=== PATIENT | female | born 1955 | race Caucasian/White ===

== ENCOUNTER 2021-03-16 07:14 | Outpatient (CLI) | payer OTHER, SELFPAY ==
--- NOTE | ~2021-03-16 | MM_ITS ---
EXAMINATION: MM screening alex BI w suki HISTORY: Screening mammogram TECHNIQUE: Craniocaudal and mediolateral oblique 3-D tomosynthesis images were obtained and synthetic 2-D images were generated. CAD analysis was submitted and interpreted. COMPARISON: No prior mammogram is available for comparison at this institution. BREAST PARENCHYMAL COMPOSITION: The breasts are almost entirely fatty. FINDINGS: RIGHT BREAST: There is a mass in the middle third of inner breast 6.5 cm from the nipple. LEFT BREAST: A mass is present in the far posterior third of the upper outer quadrant breast.. IMPRESSION: 1. Bilateral breast masses which may represent the patient's baseline however no comparison is curren tly available. 2. Comparison with prior mammograms is necessary. BI-RADS Category 0: Incomplete: Needs comparison with prior mammograms. Reviewed, dictated and finalized at location A. IMPRESSION: 1. Bilateral breast masses which may represent the patient's baseline however n o comparison is currently available. 2. Comparison with prior mammograms is necessary. BI-RADS Category 0: Incomplete: Needs comparison with prior mammograms.
--- NOTE | ~2021-03-16 | XR_ITS ---
XR chest 2V DATE: 03/16/2021 08:08 INDICATION: Tobacco use. Hypertension. TECHNIQUE: PA and lateral views COMPARISON: 07/15/2016 PA and lateral chest FINDINGS: Normal heart size. Aortic calcification and tortuosity. No hilar or mediastinal enlargement . No pulmonary infiltrate or consolidation, pleural effusion or pulmonary vascular congestion or pneumo thorax. Diffuse osteopenia. IMPRESSION: No active cardiopulmonary disease Reviewed, dictated and finalized at location A.
== END 2021-03-16 07:15 | disposition home or self-care (01) ==
PROVIDERS: PCP Emergency Medicine; Visit Provider Emergency Medicine
DX: Z12.31 Encounter for screening mammogram for malignant neoplasm of breast (principal); Z87.891 Personal history of nicotine dependence; R92.8 Other abnormal and inconclusive findings on diagnostic imaging of breast
CPT/HCPCS: 71046; 77063; 77067

== ENCOUNTER → 2021-04-09 08:16 | Outpatient (CLI) | payer OTHER, SELFPAY ==
[2021-04-09 19:37] LABS: SARS-CoV-2 RNA PCR Negative
== END ==
PROVIDERS: PCP Emergency Medicine; Visit Provider Emergency Medicine
DX: Z20.822 Contact with and (suspected) exposure to COVID-19 (principal); R05 Cough
CPT/HCPCS: 71046; C9803; U0003; U0005

== ENCOUNTER 2021-04-09 09:12 | Outpatient (CLI) | payer OTHER, SELFPAY ==
--- NOTE | ~2021-04-09 | XR_ITS ---
XR chest 2V DATE: 04/09/2021 09:27 INDICATION: Cough TECHNIQUE: PA and lateral views COMPARISON: 03/21 2021 2 view chest FINDINGS: There is mild cardiomegaly. There is aortic calcification, ectasia and tortuosity. No hilar or mediastinal enlargement. No pulmonary infiltrate or consolidation, pleural effusion or pulmonary vascular congestion or pneumo thorax. Diffuse osteopenia. IMPRESSION: Mild cardiomegaly Aortic atherosclerosis No active pulmonary disease Reviewed, dictated and finalized at location A.
== END 2021-04-09 09:13 | disposition home or self-care (01) ==
LOC: ANHIMG 09:15
PROVIDERS: PCP Emergency Medicine; Visit Provider Emergency Medicine
DX: R05 Cough (principal); I51.7 Cardiomegaly; I70.0 Atherosclerosis of aorta
CPT/HCPCS: 71046

== ENCOUNTER 2021-04-29 11:36 | Outpatient (CLI) | payer OTHER, SELFPAY ==
--- NOTE | ~2021-04-29 | MMUS_ITS ---
EXAMINATION: MM diagnostic mammo BI, US breast BI limited HISTORY: Follow-up bilateral breast masses TECHNIQUE: Additional 3-D tomosynthesis images of the breasts were performed and synthetic 2-D images were generated. CAD analysis was submitted and interpreted. High resolution limited bilateral breast ultrasound was performed. COMPARISON: 03/16/2021 BREAST PARENCHYMAL COMPOSITION: Breast composed of scattered areas of fibroglandular density FINDINGS: MAMMOGRAPHIC FINDINGS: There is a persistent circumscribed radiolucent mass measuring 6 mm in the lower inner quadrant of th e right breast, likely benign. In the left axilla there is a 1.3 cm circumscribed mass with fatty hil um, compatible with lymph node. ULTRASOUND: Limited right breast ultrasound: Normal heterogeneous echotexture without focal solid or cystic mass. Limited left breast/axillary ultrasound: There is a normal-appearing 1.1 cm lymph node in the left ax illa splinting to the mammographic finding. No suspicious masses to suggest malignancy. IMPRESSION: 1. Probable benign 6 mm circumscribed radiolucent nodule lower inner quadrant of the right breast, mi ddle third. No evidence for malignancy in the left breast. 2. Recommend 6 month follow-up diagnostic right mammogram BI-RADS category 3, probably benign findings. Reviewed, dictated and finalized at location A. IMPRESSION: 1. Probable benign 6 mm circumscribed radiolucent nodule lower inner quadrant o f the right breast, middle third. No evidence for malignancy in the left breast . 2. Recommend 6 month follow-up diagnostic right mammogram BI-RADS category 3, probably benign findings.
== END 2021-04-29 11:37 | disposition home or self-care (01) ==
LOC: ANHIMG 11:38
PROVIDERS: PCP Emergency Medicine; Visit Provider Emergency Medicine
DX: N63.24 Unspecified lump in the left breast, lower inner quadrant (principal)
CPT/HCPCS: 76642; 77066

== ENCOUNTER 2021-05-07 12:25 | Outpatient (CLI) | payer OTHER, SELFPAY ==
--- NOTE | ~2021-05-07 | CT_ITS ---
EXAMINATION: CT abdomen pelvis wo/w con DATE: 05/07/2021 13:27 INDICATION: Hematuria TECHNIQUE: Computed tomography (CT) of the abdomen and pelvis was performed without and with 130 cc O mnipaque 350 intravenous contrast. The dose-length product was 2097.48 mGy-cm. . Automated exposure control and iterative reconstruction technique were employed. COMPARISON: None. FINDINGS: Heart size normal. No significant pleural or pericardial effusion. Bibasilar atelectasis. T here is atherosclerosis of the aorta without aneurysm. There are small subcentimeter hypovascular les ions of the liver, most likely benign cysts or hemangiomas. The spleen, pancreas, right adrenal gland are unremarkable. There are low-density masses of the left adrenal gland, largest measuring 1.8 cm, likely benign adenomas. There are bilateral renal cysts with a left renal cyst containing layering mi lk of calcium. Gallbladder is present. Nonobstructive bowel gas pattern. Ureters are normal in course and caliber. Bladder is unremarkable. Small fat-containing umbilical hernia. Mild lumbar spondylosis . Nonobstructive bowel gas pattern. No abnormal pelvic masses or fluid collections. Uterus is likely surgically absent. IMPRESSION: 1. Bilateral renal cysts, complicated on the left containing milk of calcium. 2: Low-density masses of the left adrenal gland, likely benign adenomas, largest measuring 1.8 cm. Reviewed, dictated and finalized at location B. IMPRESSION: 1. Bilateral renal cysts, complicated on the left containing milk of calcium. 2: Low-density masses of the left adrenal gland, likely benign adenomas, larges t measuring 1.8 cm.
[2021-05-07 13:08] LABS: Estimated Glomerular Filt Rate > 60
== END 2021-05-07 12:26 | disposition home or self-care (01) ==
LOC: ANHIMG 12:31
PROVIDERS: PCP Emergency Medicine; Visit Provider Podiatrist Foot & Ankle Surgery
DX: R31.9 Hematuria, unspecified (principal); N28.1 Cyst of kidney, acquired
CPT/HCPCS: 74178; Q9967

== ENCOUNTER 2021-06-17 09:57 | Outpatient (CLI) | payer OTHER, SELFPAY ==
--- NOTE | ~2021-06-17 | MR_ITS ---
EXAMINATION: MR abdomen wo/w con INDICATION: Left adrenal mass and complicated left kidney cyst TECHNIQUE: Coronal SSFSE ARC, WATER:coronal LAVA-FLEX, Coronal 2D FIESTA FatSat, Axial SSFSE BH ARC, Axial 3D DualEcho BH, Axial SSFSE-IR, Axial DWI b=500, Axial 2D FIESTA FatSat, pre and dynamic postco ntrast Axial LAVA ARC, postcontrast Coronal In and Opposed phase LAVA FLEX COMPARISON: CT, 05/07/2021 CONTRAST: Multihance, 15 cc FINDINGS: Cysts of the liver measure up to 5 mm in the right hepatic lobe. There is a 5.0 x 3.8 cm gilbert btly T1 hypointense and T2 hyperintense mass of the right hepatic lobe which demonstrates enhancement with central hypoenhancement and gradual filling on progressively delayed postcontrast images, most consistent with focal nodular hyperplasia. There is a 1.6 cm T1 hypointense, slightly T2 hyperintense , nonenhancing area of the right hepatic lobe which demonstrate calcification on the comparison CT, l ikely an area of scarring. The spleen, pancreas, gallbladder, and right adrenal gland are normal. The re are masses of the left adrenal gland which measure up to 12 mm and demonstrate signal characterist ics consistent with adenomas. No suspicious renal mass is identified. Cysts of the kidneys measure up to 1.5 cm on the right. There is an 11 mm cyst of the left kidney upper pole which demonstrates laye ring T1 hyperintense, T2 hypointense signal intensity, consistent with calcium. No suspicious renal l esion is identified. There are no pathologically enlarged abdominal lymph nodes. No dilated loops of bowel are present. IMPRESSION: 1. Left adrenal adenomas. 2. Benign cysts of the kidneys. 3. Focal nodular hyperplasia of the right hepatic lobe. Reviewed, dictated and finalized at location B.
--- NOTE | ~2021-06-17 | US_ITS ---
EXAMINATION: US thyroid EXAM DATE: 06/17/2021 10:37 INDICATION: Goiter. TECHNIQUE: Multiple grayscale and Doppler images of the thyroid were obtained (by a technologist who performed the scan) and subsequently reviewed. Individual nodules and recommendations may be reporte d in accordance with TI-RADS system as designated by the 2017 ACR White Paper TI-RADS committee. The re is no prior study for comparison. FINDINGS: The right thyroid lobe measures 4.2 x 1.6 x 1.5 cm, the left measuring 4.4 x 1.5 x 1.4 cm. Mildly dif fusely heterogeneous thyroid echogenicity and mildly increased thyroid vascularity. No focal suspicio us nodules identified. IMPRESSION: Mildly enlarged, heterogeneous, hypervascular thyroid parenchyma. Reviewed, dictated and finalized at location A.
[2021-06-17 11:18] LABS: Estimated Glomerular Filt Rate > 60
== END 2021-06-17 09:58 | disposition home or self-care (01) ==
PROVIDERS: PCP Emergency Medicine; Referring Provider Internal Medicine Endocrinology, Diabetes & Metabolism; Visit Provider Nurse Practitioner
DX: E04.9 Nontoxic goiter, unspecified (principal); D35.00 Benign neoplasm of unspecified adrenal gland; N28.1 Cyst of kidney, acquired; K76.89 Other specified diseases of liver
CPT/HCPCS: 74183; 76536; A9577

== ENCOUNTER 2022-01-24 12:00 | Outpatient (CLI) | payer OTHER, SELFPAY ==
--- NOTE | ~2022-01-24 | MMUS_ITS ---
EXAMINATION: MM diagnostic alex RT w suki, US breast RT limited HISTORY: Probably benign right breast mass TECHNIQUE: Craniocaudal, mediolateral, and mediolateral oblique 3-D tomosynthesis images of the right breast were performed and synthetic 2-D images were generated. CAD analysis was submitted and interp reted. High resolution limited right breast ultrasound was performed. COMPARISON: 04/29/2021, 03/16/2021 BREAST PARENCHYMAL COMPOSITION: The breast is almost entirely fatty. FINDINGS: MAMMOGRAPHIC FINDINGS: There is a persistent and unchanged 6 mm low-density mass with indistinct margins in the middle third of inner breast three 6 cm from the nipple. There has been no suspicious interval change. No new mas s, calcification, or architectural distortion are identified. ULTRASOUND: There is no evidence of focal abnormal solid or cystic mass in the vicinity of the mammographic findi ng in question. IMPRESSION: 1. Probably benign right breast mass without sonographic correlate. 2. Recommend 6 month follow-up diagnostic mammogram and possible ultrasound are recommended. BI-RADS category 3, probably benign findings. Reviewed, dictated and finalized at location A. 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 Probably benign right breast mass without sonographic correlate. 2. Recommend 6 month follow-up diagnostic mammogram and possible ultrasound are recommended. BI-RADS category 3, probably benign findings.
== END 2022-01-24 12:01 | disposition home or self-care (01) ==
LOC: ANHIMG 12:01
PROVIDERS: PCP Emergency Medicine; Visit Provider Emergency Medicine
DX: R92.8 Other abnormal and inconclusive findings on diagnostic imaging of breast (principal)
CPT/HCPCS: 76642; 77061; 77065; G0279

== ENCOUNTER 2022-08-02 09:49 | Outpatient (CLI) | payer MEDICARE, MEDICAID, SELFPAY ==
--- NOTE | ~2022-08-02 | US_ITS ---
EXAMINATION: US retroperitoneal comp DATE: 08/02/2022 10:26 INDICATION: Adrenal mass 1 cm to 4 cm in diameter without history of malignant neoplasm TECHNIQUE: Multiple grayscale and Doppler ultrasound images of the kidneys were obtained. COMPARISON: MRI, 06/17/2021 FINDINGS: The right kidney measures 11.0 x 4.6 x 5.9 cm. There is a 1.5 cm cyst in the upper pole of the right kidney. The left kidney measures 10.9 x 5.9 x 6.0 cm. The kidneys demonstrate normal parenc hymal echogenicity. The left adrenal adenoma is detected on MRI are not demonstrated. There is no hyd ronephrosis. The bladder is normal. IMPRESSION: 1. Unremarkable kidneys without hydronephrosis. Reviewed, dictated and finalized at location B.
== END 2022-08-02 09:50 | disposition home or self-care (01) ==
PROVIDERS: PCP Emergency Medicine; Visit Provider Nurse Practitioner
DX: N28.1 Cyst of kidney, acquired (principal); E27.8 Other specified disorders of adrenal gland
CPT/HCPCS: 76770

== ENCOUNTER 2022-11-28 13:49 | Emergency (ER) | payer MEDICARE, MEDICAID, SELFPAY ==
--- NOTE | ~2022-11-28 | XR_ITS ---
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 RESULT: Lines, tubes, and devices: None. Lungs and pleura: Subsegmental left basilar opacity. Left lateral costophrenic angle blunting. No pn eumothorax. Cardiomediastinal silhouette: Stable. Other: Subtle cortical irregularity in the anterior ninth and 10th ribs No acute upper abdominal find ing. IMPRESSION: Subtle nondisplaced fractures of the left anterior ninth and 10th ribs are suspected, correlate with point tenderness. Left basilar pulmonary opacity may reflect atelectasis or contusion in the setting of trauma. Small left pleural effusion which may represent a small hemothorax in the setting of traum a. Reviewed, dictated and finalized at [facility] K. ICE CAR OPERATOR IMPRESSION: Subtle nondisplaced fractures of the left anterior ninth and 10th ribs are susp ected, correlate with point tenderness. Left basilar pulmonary opacity may refl ect atelectasis or contusion in the setting of trauma. Small left pleural effus ion which may represent a small hemothorax in the setting of trauma.
[2022-11-28 14:37] VITALS: BP 156/94; PULSE 92; RESP 18; TEMP 36.3; O2SAT 97
--- NOTE | 2022-11-28 15:16 | ED.FALL ---
HPI - Fall General Chief Complaint: Fall Stated Complaint: fall Time Seen by Provider: 11/28/22 15:00 Source: patient Mode of arrival: ambulatory Limitations: no limitations History of Present Illness HPI Narrative: Nuris is a 67-year-old female patient presenting to clinic today with complaints of falling out of her bed this morning. She reports that when she fought her bed she injured her left ribs. States she is having pain to the anterior ribs and it hurts to take a deep breath, cough, or sneeze Related Data Home Medications Medication Instructions Recorded Confirmed carvedilol 3.125 mg tablet 3.125 mg PO BID 11/28/22 11/28/22 quetiapine 200 mg tablet 100 mg PO QPM 11/28/22 11/28/22 Allergies Allergy/AdvReac Type Severity Reaction Status Date / Time No Known Allergies Allergy Mild Verified 11/28/22 14:42 Review of Systems Review of Systems: Pertinent positives per HPI. Patient denies any fever, chills, rash, headache, visual changes, dizziness, cough, runny nose, sore throat, shortness of breath, chest pain, palpitations, nausea, vomiting, diarrhea, constipation, abdominal pain, or any urinary issues. [facility] Family History Family History Other Cerebrovascular accident Hypertension Social History Social History Second hand tobacco smoke exposure: Yes Alcohol intake: never Comments At the time of my signature, I reviewed and agree with the nursing past medical, surgical, social, and family history. There is no relevant family history pertinent to the patient complaint. Exam Narrative: General: Well-developed, well nourished, in no apparent distress Head: Normocephalic, atraumatic. Chest: Even rise and fall of chest wall, no bruising or swelling noted, tenderness to palpation of the left anterior ribs just below the breast as well as some left upper quadrant abdominal discomfort Cardio: Regular rate and rhythm, s1 and s2 normal, no murmur appreciated. Resp: Clear to auscultation bilaterally, no rhonchi, rales, wheezing or rubs. Course Course Emergency Course: Portions of this record may have been created with voice recognition software. Level of Care: Express Care Visit Vital Signs Vital signs: Vital Signs Temperature 36.3 C L 11/28/22 14:37 Pulse Rate 92 11/28/22 14:37 Respiratory Rate 18 11/28/22 14:37 Blood Pressure 156/94 H 11/28/22 14:37 Pulse Oximetry 97 11/28/22 14:37 Oxygen Delivery Room Air 11/28/22 14:37 Temperature 36.3 C L 11/28/22 14:37 Pulse Rate 92 11/28/22 14:37 Respiratory Rate 18 11/28/22 14:37 Blood Pressure 156/94 H 11/28/22 14:37 Pulse Oximetry 97 11/28/22 14:37 Oxygen Delivery Room Air 11/28/22 14:37 Vital signs reviewed Transfer Transfered to: [facility] Transportation: Other (Private car) Transfer rationale: Left rib fracture with possible small hemothorax Accepting physician: Dr. Kahn Transfer comments: Transfer via private car MDM - Fall MDM Narrative Medical decision making narrative: At the time of visit patient is resting comfortably on exam table. X-ray was performed of the left ribs and shows a 9th and 10th anterior rib fracture with possible small hemothorax. Contacted Dr. Cr[facility] and discussed patient case and she accepts patient for transfer Differential Diagnosis Differential diagnosis: Likely other (Rib fracture, pneumothorax, hemothorax, rib contusion) Imaging Data Radiologist's impression: [address] [address] XRay Report Signed Patient: Nuris Baird : 1955 MR#: [id number] Age/Sex: 67 / F Acct:[id number] Loc: [facility]? ? ADM Date: 11/28/22Attending Dr: Ordering Physician: Jeronimo Rainey APRN Date of Service: 11/28/22 Procedure(s): XR ribs LT Accession N
== END 2022-11-28 16:24 | disposition home or self-care (01) ==
PROVIDERS: Emergency Provider Nurse Practitioner Family; PCP Emergency Medicine
DX: R07.81 Pleurodynia (principal); E78.00 Pure hypercholesterolemia, unspecified; I10 Essential (primary) hypertension; E03.9 Hypothyroidism, unspecified
CPT/HCPCS: 71100; 99213; G0463

== ENCOUNTER 2022-11-28 16:36 | Emergency (ER) | payer MEDICARE, MEDICAID, SELFPAY ==
--- NOTE | ~2022-11-28 | CT_ITS ---
EXAMINATION: CT diagnostic chest wo con DATE: 11/28/2022 18:15 INDICATION: L 9/10 rib fxs, possible hemothorax/pulm contusion . TECHNIQUE: Computed tomography (CT) of the chest was performed without intravenous contrast. Automate d exposure control and iterative reconstruction technique were employed. The dose-length product was 352.64 mGy-cm. COMPARISON: X-ray chest, same date FINDINGS: CHEST: No thoracic aortic injury. No mediastinal hematoma. Trace pericardial fluid. No acute lung injury. No pleural effusion or pneumothorax. MUSCULOSKELETAL: Minimal cortical angulation along the inferior aspect of the anterior sixth and seventh ribs, otherwi se no acute fracture. No fracture or traumatic malalignment of the thoracic spine. Chronic-appearing superior endplate defo rmity at T3. IMPRESSION: Limited noncontrast exam. Nondisplaced fractures of the left anterior sixth and seventh ribs. No pneu mothorax. No hemothorax. Trace pericardial fluid. Reviewed, dictated and finalized at location K. TECH IMPRESSION: Limited noncontrast exam. Nondisplaced fractures of the left anterior sixth and seventh ribs. No pneumothorax. No hemothorax. Trace pericardial fluid.
[2022-11-28 16:46] VITALS: BP 139/87; PULSE 80; RESP 18; TEMP 36.6; O2SAT 98
--- NOTE | 2022-11-28 19:03 | ED.FALL ---
HPI - Fall General Chief Complaint: Fall Stated Complaint: fall/rib fx Time Seen by Provider: 11/28/22 17:59 Source: patient and old records reviewed Mode of arrival: ambulatory Limitations: no limitations History of Present Illness HPI Narrative: Patient is a 67 y/o female who presents to the ED with c/o left rib pain. Patient reports she fell out of bed last night and hit her left-sided rib cage against her nightstand. She complains of pain to her left anterior and lateral ribs. She was seen in urgent care today. CXR from showed likely 9/10th ribs, possible hemothorax, possible pulmonary contusion. Patient was then sent here for further evaluation. Patient reports pain with movement and taking deep breaths, denies any difficulty breathing. Denies chest pain. Denies abdominal pain. Has not taken anything for pain. Related Data Home Medications Medication Instructions Recorded Confirmed carvedilol 3.125 mg tablet 3.125 mg PO BID 11/28/22 11/28/22 quetiapine 200 mg tablet 100 mg PO QPM 11/28/22 11/28/22 Allergies Allergy/AdvReac Type Severity Reaction Status Date / Time No Known Allergies Allergy Mild Verified 11/28/22 14:42 Review of Systems Review of Systems: CONSTITUTIONAL: Denies fever, chills, or sweats. CARDIOVASCULAR: Denies chest pain, palpitations. RESPIRATORY: See HPI. GASTROINTESTINAL: Denies abdominal pain, nausea, vomiting. MUSCULOSKELETAL: See HPI. All systems reviewed & are unremarkable except as noted in HPI and below PMFSH Past Medical History Medical History (Updated 11/28/22 @ 20:39 by Kirsty Andujar PA-C) HLD (hyperlipidemia) HTN (hypertension) Hyperthyroidism Schizotypal personality disorder Surgical History Surgical History (Updated 11/28/22 @ 20:39 by Kirsty Andujar PA-C) No pertinent past surgical history Family History Family History Other Cerebrovascular accident Hypertension Social History Social History Second hand tobacco smoke exposure: Yes Alcohol intake: never Exam Narrative: GENERAL: Well appearing, obese, non-toxic, in no acute distress. HEAD: Normocephalic, atraumatic. NECK: Supple. No adenopathy, no masses. RESPIRATORY: Airway patent, respirations nonlabored. Clear to auscultation bilaterally, no rales, rhonchi, wheezing. No splinting. CARDIOVASCULAR: Regular rate and rhythm without murmurs, rubs, or gallops. Radial pulses 2+ and equal bilaterally. ABDOMINAL: Soft, nontender, nondistended, no hepatosplenomegaly. Normoactive BS. MUSCULOSKELETAL: Moves all extremities. Strength/ROM intact without gross deformities. Mild tenderness along anterior lateral left lower rib cage, under left breast. No significant bruising noted. SKIN: Warm, dry, normal color. No rashes. NEURO: A&O X3. Speech clear. Cranial nerves II-XII grossly intact. Steady gait. No ataxic movements. PSYCHIATRIC: Appropriate mood and affect. Normal interaction. Course Consultations Consultation #1: Discussed case with Dr. Lauren, PCP, will f/u with patient. Recommended cardiology consult. Date: 11/28/22 Time: 20:15 Consultation #2: Discussed case and CT findings with Dr. Lebron, cardiology, advised unlikely pericardial effusion r/t trauma. Recommended nonemergent OP ECHO in the future. Date: 11/28/22 Time: 20:32 Vital Signs Vital signs: Vital Signs Temperature 97.9 F 11/28/22 16:46 Pulse Rate 80 11/28/22 16:46 Respiratory Rate 18 11/28/22 16:46 Blood Pressure 139/87 11/28/22 16:46 Pulse Oximetry 98 11/28/22 16:46 Oxygen Delivery Room Air 11/28/22 16:46 Temperature 97.9 F 11/28/22 16:46 Pulse Rate 80 11/28/22 16:46 Respiratory Rate 18 11/28/22 16:46 Blood Pressure 139/87 11/28/22 16:46 Pulse Oximetry 98 11/28/22 16:46 Oxygen Delivery Room Air 11/28/22 16:46 MDM - Fall MDM Narrative Medical
--- NOTE | 2022-11-28 19:07 | ECG_ITS ---
Measurements Intervals [place] Rate: 70 P: -18 [place]: 188 QRS: 42 QRSD: 88 T: 44 QT: 418 QTc: 452 Interpretive Statements SINUS RHYTHM INCOMPLETE RIGHT BUNDLE BRANCH BLOCK BORDERLINE T WAVE ABNORMALITY- ANTERIOR LEADS BASELINE ARTIFACT- II, III, AVR, AVL, AVF, V3-V6 BORDERLINE ECG NO PREVIOUS ECG AVAILABLE FOR COMPARISON Electronically Signed On 11-29-2022 6:34:40 DIRECTOR WORK by Kirk Lebron D.O.
[2022-11-28] MEDS: KETOROLAC 30 MG/ML VIAL (*BKC) IM (20:40)
[2022-11-28] MEDS: HYDROcodone/acetaminophen (*CRX) 5-325 MG TABLET 1 TAB PO (20:41)
== END 2022-11-28 20:47 | disposition home or self-care (01) ==
PROVIDERS: Emergency Provider Physician Assistant; PCP Emergency Medicine
DX: S22.42XA Multiple fractures of ribs, left side, initial encounter for closed fracture (principal); J90 Pleural effusion, not elsewhere classified; E78.5 Hyperlipidemia, unspecified; I10 Essential (primary) hypertension; E05.90 Thyrotoxicosis, unspecified without thyrotoxic crisis or storm; F21 Schizotypal disorder; Z77.22 Contact with and (suspected) exposure to environmental tobacco smoke (acute) (chronic); I45.10 Unspecified right bundle-branch block; R94.31 Abnormal electrocardiogram [ECG] [EKG]; W06.XXXA Fall from bed, initial encounter
CPT/HCPCS: 71100; 71250; 93005; 96372; 99284; A9270; J1885

== ENCOUNTER 2022-12-23 12:36 | Outpatient (CLI) | payer MEDICARE, MEDICAID, SELFPAY ==
--- NOTE | ~2022-12-23 | MMUS_ITS ---
EXAMINATION: MM diagnostic alex BI w suki, US breast BI limited HISTORY: Follow-up probable benign right breast mass TECHNIQUE: Additional 3-D tomosynthesis images of the breasts were performed and synthetic 2-D images were generated. CAD analysis was submitted and interpreted. High resolution limited bilateral breast ultrasound was performed. COMPARISON: Comparison to multiple prior studies sequentially, with oldest reviewed study dated 03/16. BREAST PARENCHYMAL COMPOSITION: Breast composed of scattered areas of fibroglandular density FINDINGS: MAMMOGRAPHIC FINDINGS: Stable low-density mass lower inner quadrant of the right breast, likely benign. No new masses, calci fications or architectural distortion in either breast to suggest malignancy. ULTRASOUND: Limited bilateral breast ultrasound: Normal heterogeneous echotexture in both breasts. No discrete ma ss. IMPRESSION: 1. No evidence for malignancy in either breast. 2. Routine yearly screening mammogram and regular clinical breast examination are recommended. BI-RADS Category 2: Benign finding(s). Reviewed, dictated and finalized at location A. AGE SOLUTIONS ARCHITECT IMPRESSION: 1. No evidence for malignancy in either breast. 2. Routine yearly screening mammogram and regular clinical breast examination a re recommended. BI-RADS Category 2: Benign finding(s).
== END 2022-12-23 12:37 | disposition home or self-care (01) ==
LOC: ANHIMG 12:38
PROVIDERS: PCP Emergency Medicine; Visit Provider Emergency Medicine
DX: N63.10 Unspecified lump in the right breast, unspecified quadrant (principal); R92.8 Other abnormal and inconclusive findings on diagnostic imaging of breast
CPT/HCPCS: 76642; 77062; 77066; G0279

== ENCOUNTER 2023-09-13 08:07 | Outpatient (CLI) | payer MEDICARE, MEDICAID, SELFPAY ==
--- NOTE | ~2023-09-13 | CT_ITS ---
CT of the Abdomen and Pelvis: Indication: Renal cyst Technique: 2.5 mm axial scans were obtained through the abdomen and pelvis prior to and following in travenous administration of 130 cc of Omnipaque 350. Dose reduction technique was used on this scan b y utilizing automated exposure control and iterative reconstruction technique. The dose-length produc t (DLP) was 1600.58 mGy-cm. COMPARISON: 05/07/2021 Findings: Scans through the lung bases are unremarkable. Stable small hypodense hepatic lesions, likely benign given timeframe. Stable 1.6 cm left adrenal nod ule, compatible with benign lesion given timeframe of prior exam. The spleen, pancreas, gallbladder, and right adrenal gland are within normal limits. 1.4 cm exophytic, nonenhancing left renal lesions c onsistent with benign cyst, minimally increased in size from prior exam. Simple right upper pole laura l cyst also present. There are atherosclerotic calcifications of the aorta. No lymphadenopathy. No bowel obstruction or bowel wall thickening. Small fat-containing umbilical hernia noted. Images through the pelvis were performed. Urinary bladder unremarkable. No pelvic mass seen. No ascit es. Impression: Benign bilateral renal cysts, minimally increased in size from prior exam. Stable 1.6 cm left adrenal nodule, benign. Stable small benign hepatic lesions. Small fat-containing umbilical hernia. Reviewed, dictated and finalized at location . Impression: Benign bilateral renal cysts, minimally increased in size from prior exam. Stable 1.6 cm left adrenal nodule, benign. Stable small benign hepatic lesions. Small fat-containing umbilical hernia.
[2023-09-13 08:50] LABS: Estimated Glomerular Filt Rate > 60
== END 2023-09-13 08:08 | disposition home or self-care (01) ==
PROVIDERS: PCP Emergency Medicine
DX: N28.1 Cyst of kidney, acquired (principal); E27.8 Other specified disorders of adrenal gland; K76.9 Liver disease, unspecified; K42.9 Umbilical hernia without obstruction or gangrene
CPT/HCPCS: 72100; 74178; Q9967

== ENCOUNTER → 2023-09-13 10:18 | Outpatient (CLI) | payer MEDICARE, MEDICAID, SELFPAY ==
--- NOTE | ~2023-09-13 | XR_ITS ---
XR lumbar spine 2-3V DATE: 09/13/2023 10:43 INDICATION: Low back pain. No injury. TECHNIQUE: AP, lateral, coned lateral lumbosacral views COMPARISON: None FINDINGS: There is diffuse osteopenia. There is a transitional first sacral vertebra with sacralization pseudoarthrosis on the left, lumbari zation on the right. There is minimal grade 1 anterolisthesis at L4-5 and L5-S1 due to degenerative change at the apophyse al joints. No fracture or bone destruction is detected. Lumbar and lumbosacral interspaces appear well preserved . There is abdominal aortic calcification, without evidence of aneurysm, as well as common iliac artery calcifications. There is bilateral renal excretion of contrast material with no evidence of hydronephrosis. IMPRESSION: Osteopenia Transitional first sacral vertebra Mild lumbar degenerative change Reviewed, dictated and finalized at location B.
== END ==
PROVIDERS: PCP Emergency Medicine; Visit Provider Emergency Medicine
DX: M54.50 Low back pain, unspecified (principal); M85.88 Other specified disorders of bone density and structure, other site; Q76.49 Other congenital malformations of spine, not associated with scoliosis
CPT/HCPCS: 72100

== ENCOUNTER 2023-10-22 09:16 | Emergency (ER) | payer MEDICARE, MEDICAID, SELFPAY ==
[2023-10-22 09:29] VITALS: BP 129/103; PULSE 69; RESP 18; TEMP 36.2; O2SAT 99
--- NOTE | 2023-10-22 09:52 | ED.EXTPRO ---
HPI - Extremity Problem General Chief complaint: Extremity Problem,Nontraumatic Stated complaint: Lt Knee Pain Time Seen by Provider: 10/22/23 09:52 Source: patient Mode of arrival: ambulatory Limitations: no limitations History of Present Illness HPI Narrative: 68-year-old female presented for complaint of left knee pain for 3 days. She states both knees started hurting after she cleaned up for Thanksgiving, stating she over did it. Reports the left knee pain has persisted after ibuprofen ice and rest. Pain feels like it is behind the knee cap and to the back of the knee. Rates pain 6/10. She denies swelling, numbness, tingling, weakness or erythema of the lower extremity. Related Data Home Medications Medication Instructions Recorded Confirmed carvedilol 3.125 mg tablet 3.125 mg PO BID 11/28/22 11/28/22 quetiapine 200 mg tablet 100 mg PO QPM 11/28/22 11/28/22 Allergies Allergy/AdvReac Type Severity Reaction Status Date / Time No Known Allergies Allergy Mild Verified 11/28/22 14:42 Review of Systems Review of Systems: CONSTITUTIONAL: Denies body aches, fever, chills EYES: Denies visual changes ENT: Denies rhinorrhea, congestion CARDIOVASCULAR: Denies chest pain, palpitations, or edema. RESPIRATORY: Denies cough or dyspnea. GASTROINTESTINAL: Denies abdominal pain, nausea, vomiting, or diarrhea. SKIN: Denies rash, itching, or wounds. MUSCULOSKELETAL: Reports left knee pain denies back pain, or myalgia. NEUROLOGIC: Denies headache, numbness, tingling, or weakness. All systems reviewed & are unremarkable except as noted in HPI and below PMFSH Past Medical History Medical History HLD (hyperlipidemia) HTN (hypertension) Hyperthyroidism Schizotypal personality disorder Surgical History Surgical History No pertinent past surgical history Family History Family History Other Cerebrovascular accident Hypertension Social History Social History Second hand tobacco smoke exposure: Yes Alcohol intake: never Comments At time of signature, I have reviewed and agree with nursing past medical, surgical, social and family history unless otherwise noted. Please see nursing chart for further information. There is no relevant family history pertinent to the presenting complaint Exam Narrative: GENERAL: Well-appearing, well-nourished, and in no acute distress. HEAD: Normocephalic, atraumatic. CHEST: Speaks in full sentences. No respiratory distress. HEART: Regular rate and rhythm. Normal and equal peripheral pulses. EXTREMITIES: Left LE has normal strength and sensation, normal range of motion endorses left knee pain with movement. No swelling ot the knee. No erythema, edema or ecchymosis, No point tenderness. No open wounds, skin tenting, alignment normal, pulse palpable and equal bilaterally, skin warm, dry, pink. Capillary refill less than 3 seconds. Steady gait. SKIN: Warm, dry, no rash. NEURO: Alert and oriented x3. PSYCH: Normal mood and affect Course Course Emergency Course: Patient is aware of diagnosis, understands and agrees to treatment plan. Anticipatory guidance given. Patient agrees to follow-up as directed and is aware of reasons to seek care at the emergency department. Portions of this record may have been created with voice recognition software Level of Care: Express Care Visit Vital Signs Vital signs: Vital Signs Temperature 97.1 F L 10/22/23 09:29 Pulse Rate 69 10/22/23 09:29 Respiratory Rate 18 10/22/23 09:29 Blood Pressure 129/103 H 10/22/23 09:29 Pulse Oximetry 99 10/22/23 09:29 Oxygen Delivery Room Air 10/22/23 09:29 Temperature 97.1 F L 10/22/23 09:29 Pulse Rate 69 10/22/23 09:29 Respiratory Rate 18 10/22/23 09:
== END 2023-10-22 10:05 | disposition home or self-care (01) ==
PROVIDERS: Emergency Provider Nurse Practitioner Family; PCP Emergency Medicine
DX: M25.562 Pain in left knee (principal); E78.5 Hyperlipidemia, unspecified; I10 Essential (primary) hypertension; E05.90 Thyrotoxicosis, unspecified without thyrotoxic crisis or storm; F21 Schizotypal disorder
CPT/HCPCS: 99211; G0463

== ENCOUNTER → 2023-10-25 11:33 | Outpatient (CLI) | payer MEDICARE, MEDICAID, SELFPAY ==
--- NOTE | ~2023-10-25 | XR_ITS ---
Left Knee Technique: AP, lateral, and sunrise views were obtained. Clinical History: Pain Findings: No fracture or dislocation is seen. Osseous alignment is anatomic. Joint spaces are preserv ed without degenerative or erosive change. Soft tissues are unremarkable. No joint effusion is seen. Impression: Unremarkable left knee radiographs. Reviewed, dictated and finalized at location . C BLOWER Impression: Unremarkable left knee radiographs.
== END ==
PROVIDERS: PCP Emergency Medicine; Visit Provider Emergency Medicine
DX: M25.562 Pain in left knee (principal)
CPT/HCPCS: 73564

== ENCOUNTER 2023-12-06 08:54 | Inpatient (IN) | payer MEDICARE, MEDICAID, SELFPAY ==
[2023-12-06] VITALS (9 sets, daily range): BP systolic 137–152; BP diastolic 76–102; PULSE 80–128; RESP 16–20; TEMP 36.8–37.2; O2SAT 95–98
--- NOTE | ~2023-12-06 | CT_ITS ---
EXAMINATION: CT abdomen pelvis w con DATE: 12/06/2023 11:00 INDICATION: Nausea and vomiting. TECHNIQUE: Computed tomography (CT) of the abdomen and pelvis was performed with 100 mL Omnipaque 350 intravenous contrast. Automated exposure control and iterative reconstruction technique were employe d. The dose-length product was 933.57 mGy-cm. COMPARISON: CT abdomen and pelvis 09/13/2023, 05/07/21 FINDINGS: The visualized portions of the lung bases demonstrate mild atelectasis. No pleural effusion . The heart size is normal. No pericardial effusion. There are cysts in the liver measuring up to 8 m m. There is chronic focal scarring in right hepatic lobe. The gallbladder, spleen, pancreas, and righ t adrenal gland are normal. There is a 15 mm mass in left adrenal gland measuring low-attenuation on the prior noncontrast CT, consistent with an adenoma. There are cysts in the kidneys measuring up to 2.1 cm on the right. There is calcified atherosclerosis of the aorta and many of the other arteries. There is old fat necrosis adjacent to the sigmoid colon. There is diverticulosis of the colon without evidence of diverticulitis. There are no dilated loops of bowel. The appendix is not visualized. The re is a supraumbilical ventral hernia containing fat. There are no pathologically enlarged lymph node s. There is no free intraperitoneal fluid. There is a chronic 12 mm sclerotic lesion in proximal righ t femur, likely benign. IMPRESSION: 1. Supraumbilical ventral hernia containing fat. Reviewed, dictated and finalized at location A. S REPRESENTATIVE
--- NOTE | 2023-12-06 09:08 | ECG_ITS ---
Measurements Intervals [place] Rate: 104 P: 238 [place]: 100 QRS: 85 QRSD: 94 T: 73 QT: 319 QTc: 421 Interpretive Statements SINUS TACHYCARDIA INCOMPLETE RIGHT BUNDLE BRANCH BLOCK BORDERLINE ST ABNORMALITY- ANTEROLATERAL LEADS BASELINE ARTIFACT- I, II, III, AVR, AVL, AVF, V1-V6 BORDERLINE ECG COMPARED TO ECG 11/28/2022 19:25:05 SINUS TACHYCARDIA NOW PRESENT Electronically Signed On 12-06-2023 9:47:15 ANODE REBUILDER by Kirk Lebron D.O.
--- NOTE | 2023-12-06 09:17 | ED.NAVMDI ---
HPI - Nausea/Vomiting/Diarrhea General Chief complaint: Nausea/Vomiting/Diarrhea <Bev Bowens PA-C - Last Filed: 12/06/23 17:56> Stated complaint: NVD <Bev Bowens PA-C - Last Filed: 12/06/23 17:56> Time Seen by Provider: 12/06/23 09:01 <Bev Bowens PA-C - Last Filed: 12/06/23 17:56> History of Present Illness HPI Narrative: 68-year-old female with a history of hypertension, hyperlipidemia, hyperthyroidism, recent diagnosis of H pylori reports with her family at bedside for nausea and vomiting for multiple weeks. Patient states for the past few weeks, she has developed nausea and epigastric pain. States she saw her PCP approximately 10 days ago and had labs drawn. She had a telehealth appointment with her PCP approximately 2-3 days ago where they discuss lab results. States she was diagnosed with H pylori, UTI, and was told her sodium was low, TSH was elevated and LFTs were elevated. She states she was started on 3 new medications fr H pylori which included Flagyl and omeprazole, possibly tetracycline, however she is unsure. She states around 0200 this morning, she began having worsening nausea and dry heaving with a small amount of emesis. She denies fever, chest pain or shortness of breath, flank pain, dysuria or hematuria, diarrhea, melena or hematochezia, abdominal pain. She denies prior abdominal surgeries. Last bowel movement was earlier today and normal. She does endorse some rhinorrhea for the past few weeks as well. Pt states she has been unable to tolerate po intake including her home medications today and yesterday. <Bev Bowens PA-C - Last Filed: 12/06/23 17:56> Related Data Home medications: Home Medications Medication Instructions Recorded Confirmed carvedilol 3.125 mg tablet 3.125 mg PO BID 11/28/22 12/06/23 quetiapine 200 mg tablet 100 mg PO HS 11/28/22 12/06/23 ergocalciferol (vitamin D2) 1,250 See Rx Instructions .Route .COMPLEX 12/06/23 12/06/23 mcg (50,000 unit) capsule <Bev Bowens PA-C - Last Filed: 12/06/23 17:56> Allergies/Adverse reactions: Allergies Allergy/AdvReac Type Severity Reaction Status Date / Time No Known Allergies Allergy Mild Verified 11/28/22 14:42 <Bev Bowens PA-C - Last Filed: 12/06/23 17:56> Review of Systems Review of Systems: CONSTITUTIONAL: Denies fever, chills, or sweats. EYES: Denies visual changes, redness, or discharge. ENT: See HPI CARDIOVASCULAR: Denies chest pain, palpitations, or edema. RESPIRATORY: Denies cough or dyspnea. GASTROINTESTINAL: see HPI GENITOURINARY: Denies dysuria or hematuria. SKIN: Denies rash or itching. MUSCULOSKELETAL: Denies back pain, joint pain, or myalgia. NEUROLOGIC: Denies headache, numbness, or weakness. PSYCHIATRIC: Denies anxiety or depression. <Bev Bowens PA-C - Last Filed: 12/06/23 17:56> [facility] Past Medical History Medical History: Medical History (Updated 12/06/23 @ 17:00 by Kirsty Hannon PA-C) HLD (hyperlipidemia) HTN (hypertension) Hyperthyroidism Schizotypal personality disorder <Bev Bowens PA-C - Last Filed: 12/06/23 17:56> Surgical History Surgical History: Surgical History (Updated 12/06/23 @ 17:45 by Kirsty Hannon PA-C) History of hysterectomy No pertinent past surgical history <Bev Bowens PA-C - Last Filed: 12/06/23 17:56> Family History Family History: Family History Father Cerebrovascular accident Hypertension <Bev Bowens PA-C - Last Filed: 12/06/23 17:56> Social History Social History: Social History (Updated 12/06/23 @ 17:46 by Kirsty Hannon PA-C) Smoking packs per day: 1 Smoking cigarettes per day: 20.0 Years smoked: 20 Smoking pack-years: 20.00 Smoking status: Former smoker Tobacco type: cigarettes Second hand tobacco smoke exposure: No Additional smoking ass
[2023-12-06] MEDS: ONDANSETRON INJ 4 MG/2 ML VIAL IV PUSH ×3 (10:01→17:41)
[2023-12-06] MEDS: SODIUM CHLORIDE 0.9% IV 1,000 ML 999 ML IV CONT (10:01)
[2023-12-06 10:07] LABS: Basophils Absolute Auto 0.1 K/mm3 (0.0-0.1); Basophils Percent Auto 0.4 % (0.2-1.2); Eosinophils Percent Auto 0.3 % (0-4.4); Hemoglobin 13.8 g/dL (12.0-15.0); Immature Granulocyte Absolute 0.06 K/mm3 (0.00-0.031); Immature Granulocyte Percent A 0.4 % (0-0.5); Lymphocytes Absolute Auto 0.97 K/mm3 (0.9-3.2); Lymphocytes Percent Auto 7.2 % (18.3-44.2); Mean Corpuscular HGB Conc 34.5 g/dl (32-36); Mean Corpuscular Hemoglobin 30.7 pg (26-34); Mean Corpuscular Volume 88.9 fl (80-100); Mean Platelet Volume 8.2 fl (7.4-10.4); Monocytes Absolute Auto 0.8 K/mm3 (0.1-0.6); Neutrophils Absolute Auto 11.6 K/mm3 (1.3-6.7); Neutrophils Percent Auto 85.7 % (45.5-73.1); Platelet Count Result 368 k/mm3 (150-375); Red Cell Distribution Width 13.5 % (11.5-14.5); White Blood Count 13.6 K/mm3 (4.5-10.0)
[2023-12-06 10:12] LABS: Influenza A QL RT-PCR Negative (Negative); Influenza B QL RT-PCR Negative (Negative); RSV RNA, RT-PCR Negative (Negative); SARS-CoV-2 RNA PCR Negative (Negative)
[2023-12-06 10:19] LABS: Alanine Aminotransferase 123 U/L (6-35); Alkaline Phosphatase 91 U/L (38-126); Anion Gap 14 mmol/L (8-16); Aspartate Amino Transferase 53 U/L (14-36); Bilirubin,Total 0.8 mg/dL (0.2-1.3); Blood Urea Nitrogen 11 mg/dL (7-17); Calcium 10.1 mg/dL (8.4-10.2); Carbon Dioxide 18 mmol/L (22-30); Chloride 93 mmol/L (98-107); Estimated CRCL calculation 55 ml/min; Estimated Glomerular Filt Rate > 60; Glucose 172 mg/dL (65-110); Lipase 85 U/L (23-300); Potassium 3.7 mmol/L (3.4-5.0); Sodium 125 mmol/L (137-145)
[2023-12-06] MEDS: PANTOPRAZOLE SODIUM IV 40 MG VIAL IV PUSH (11:30)
[2023-12-06 12:25] LABS: Appearance Urine Clear (Clear); Color Urine Yellow (Yellow); Glucose Urine UA Negative (Negative); Protein Urine Negative (Negative); pH Urine 6.5 (5.0-9.0)
[2023-12-06 12:26] LABS: Bilirubin Urine Negative (Negative); Blood Urine 1+ (Negative); Ketones Urine Negative (Negative); Leukocyte Esterase Ur 1+ LEU/UL (Negative); Nitrate Urine Negative (Negative); Urobilinogen Urine 0.2 mg/dL (<2.0)
[2023-12-06 12:27] LABS: Sodium Urine Random 33 meq/L
[2023-12-06 12:35] LABS: Add Urine Microscopic? YES
[2023-12-06 12:38] LABS: Squamous Epithelial Cell Urine Moderate /hpf (Few)
[2023-12-06 12:39] LABS: Bacteria Urine Trace /hpf; Mucus Urine Present /lpf
--- NOTE | 2023-12-06 13:38 | PC.NURSE ---
This patient, Nuris Baird, was admitted to Medical Room 349-01. Patient/family oriented to hospital policies and general routines including ID bracelet, bed and alarms, visiting hours, pain management, procedures, bathroom and other care routines, personal items, smoking policy, room service/diet, and visiting hours. Information on how to activate the Rapid Response Team has been discussed. Patient/Family are encouraged to report perceived risks to care and to ask questions if they do not understand what they are told or what they should do.
[2023-12-06] MEDS: SODIUM CHLORIDE 0.9% IV 1,000 ML 125 ML IV CONT (13:55)
--- NOTE | 2023-12-06 16:50 | PM.IMHP ---
H&P: HPI History of Present Illness Date/Time: 12/06/23 16:50 Chief Complaint: Nausea and vomiting Narrative: Patient is a 68-year-old female with a past medical history of hypertension, hyperlipidemia, recent H pylori, and anxiety who presents emergency room for nausea and vomiting that has lasted 1 month. She states that she has had nausea and vomiting for a while but last night it got worse and she could not take her medications and felt really bad so she came in. She does not really have significant abdominal pain, but just feels like it is tight around her abdomen. She has not been eating for the last month and has lost 15 lb in 6 weeks. She has had a colonoscopy in the past 3 years ago which showed 2 benign polyps. She has been on antibiotics for recent H pylori infection but unable to tolerate them. She has no history of diabetes. She was told that she was hyponatremic last week at 129 but that is the 1st time she has heard of it. She does not have UTI symptoms. She is is on Seroquel for insomnia and denies schizophrenic diagnosis. She denies diarrhea, constipation, chest pain, shortness of breath, fevers but does admit to night sweats. Review of Systems Review of Systems: All systems reviewed & are unremarkable except as noted in HPI and below PMFSH Past Medical History Medical History (Updated 12/06/23 @ 17:00 by Kirsty Hannon PA-C) HLD (hyperlipidemia) HTN (hypertension) Hyperthyroidism Schizotypal personality disorder Surgical History Surgical History (Updated 12/06/23 @ 17:45 by Kirsty Hannon PA-C) History of hysterectomy No pertinent past surgical history Family History Family History Father Cerebrovascular accident Hypertension Social History Social History (Updated 12/06/23 @ 17:46 by Kirsty Hannon PA-C) Smoking packs per day: 1 Smoking cigarettes per day: 20.0 Years smoked: 20 Smoking pack-years: 20.00 Smoking status: Former smoker Tobacco type: cigarettes Second hand tobacco smoke exposure: No Additional smoking assessment comments: Quit smoking 1 year ago Alcohol intake: never Substance use: never Do You Feel Safe in your Home?: Yes Lack of Transportation: No Lack of Food: Never True Current Housing: I Have Housing Concerned About Future Housing: No Difficulty Paying Gas/Electric Bills: No Difficulty Paying for Meds: No Currently Unemployed: No Education: Trade/Vocational Certificate Difficulty w/ Childcare or Family Care: No Spiritual care concerns: No Meds Home Medications and Allergies Home Medications Medication Instructions Recorded Confirmed Type amlodipine 10 mg tablet 10 mg PO DAILY 90 days #90 tabs 10/19/20 12/06/23 Rx rosuvastatin 20 mg tablet 20 mg PO DAILY 90 days #90 tabs 10/19/20 12/06/23 Rx olmesartan 40 1 tablet PO DAILY 90 days #90 tabs 12/22/20 12/06/23 Rx mg-hydrochlorothiazide 25 mg tablet carvedilol 3.125 mg tablet 3.125 mg PO BID 11/28/22 12/06/23 History quetiapine 200 mg tablet 100 mg PO HS 11/28/22 12/06/23 History ergocalciferol (vitamin D2) 1,250 See Rx Instructions .Route .COMPLEX 12/06/23 12/06/23 History mcg (50,000 unit) capsule Allergies Allergy/AdvReac Type Severity Reaction Status Date / Time No Known Allergies Allergy Mild Verified 11/28/22 14:42 Vital Signs Vital Signs - 24 hr 12/06/23 09:02 12/06/23 10:09 12/06/23 12:04 Temperature 98.2 F Pulse Rate 128 H 114 H 88 Respiratory Rate 18 16 16 Blood Pressure 137/102 H 142/88 H 150/89 H Pulse Oximetry 97 96 98 12/06/23 12:23 12/06/23 13:21 Temperature 98.4 F 98.3 F Pulse Rate 87 102 H Respiratory Rate 16 20 Blood Pressure 146/82 H 152/95 H Pulse Oximetry 97 97 Exam Narrative: General:Well developed well nourished patient HEENT: Normocephalic, atraumatic, PERRL, Sclerae anicteric, oral mucosa moist. Neck: Supple Resp: C
[2023-12-06] MEDS: ACETAMINOPHEN 325 MG TABLET 650 MG PO (17:40)
[2023-12-06] MEDS: BISMUTH SUBSALICYLATE 262 MG CHEWABLE TABLET 524 MG PO ×2 (17:41→23:09)
[2023-12-06] MEDS: TETRACYCLINE HCL 250 MG CAPSULE 500 MG PO ×2 (17:41→23:08)
[2023-12-06 18:26] LABS: Sodium 128 mmol/L (137-145)
[2023-12-06] MEDS: QUEtiapine FUMARATE 100 MG TABLET PO (21:03)
[2023-12-06] MEDS: metroNIDAZOLE 500 MG/ISO 100ML 500 MG/100 ML BAG 100 MG IVPB (21:03)
[2023-12-06] MEDS: PANTOPRAZOLE 40 MG TABLET PO (21:04)
[2023-12-06] MEDS: carvediloL 3.125 MG TABLET PO (21:11)
[2023-12-06] MEDS: traZODone HCL 50 MG TABLET 100 MG PO (23:36)
[2023-12-07] VITALS (11 sets, daily range): BP systolic 126–134; BP diastolic 77–98; PULSE 65–89; RESP 18–20; TEMP 36.1–36.6; O2SAT 96–98; BMI 33.1
[2023-12-07 00:45] LABS: Sodium 127 mmol/L (137-145)
[2023-12-07 05:59] LABS: Basophils Absolute Auto 0.1 K/mm3 (0.0-0.1); Basophils Percent Auto 0.6 % (0.2-1.2); Eosinophils Percent Auto 0.1 % (0-4.4); Hematocrit 34.1 % (37.0-47.0); Hemoglobin 11.7 g/dL (12.0-15.0); Immature Granulocyte Absolute 0.03 K/mm3 (0.00-0.031); Immature Granulocyte Percent A 0.4 % (0-0.5); Lymphocytes Absolute Auto 1.73 K/mm3 (0.9-3.2); Lymphocytes Percent Auto 20.8 % (18.3-44.2); Mean Corpuscular HGB Conc 34.3 g/dl (32-36); Mean Corpuscular Volume 90.2 fl (80-100); Mean Platelet Volume 8.2 fl (7.4-10.4); Monocytes Absolute Auto 0.9 K/mm3 (0.1-0.6); Monocytes Percent Auto 10.2 % (2.6-8.5); Neutrophils Absolute Auto 5.6 K/mm3 (1.3-6.7); Neutrophils Percent Auto 67.9 % (45.5-73.1); Platelet Count Result 281 k/mm3 (150-375); Red Blood Count 3.78 M/mm3 (4.2-5.4); Red Cell Distribution Width 13.8 % (11.5-14.5); White Blood Count 8.3 K/mm3 (4.5-10.0)
[2023-12-07 06:29] LABS: Alanine Aminotransferase 84 U/L (6-35); Albumin Level 3.8 g/dL (3.5-5.1); Alkaline Phosphatase 69 U/L (38-126); Anion Gap 8 mmol/L (8-16); Aspartate Amino Transferase 37 U/L (14-36); Bilirubin,Total 0.7 mg/dL (0.2-1.3); Blood Urea Nitrogen 4 mg/dL (7-17); Calcium 9.5 mg/dL (8.4-10.2); Carbon Dioxide 22 mmol/L (22-30); Chloride 99 mmol/L (98-107); Estimated CRCL calculation 72 ml/min; Estimated Glomerular Filt Rate > 60; Glucose 93 mg/dL (65-110); Potassium 3.9 mmol/L (3.4-5.0); Sodium 129 mmol/L (137-145)
[2023-12-07] MEDS: BISMUTH SUBSALICYLATE 262 MG CHEWABLE TABLET 524 MG PO ×4 (06:38→23:04)
[2023-12-07] MEDS: TETRACYCLINE HCL 250 MG CAPSULE 500 MG PO ×4 (06:38→23:04)
[2023-12-07] MEDS: metroNIDAZOLE 500 MG/ISO 100ML 500 MG/100 ML BAG 100 MG IVPB ×3 (06:39→23:04)
[2023-12-07] MEDS: SODIUM CHLORIDE 0.9% IV 1,000 ML 50 ML IV CONT (06:44)
[2023-12-07 06:53] LABS: Hepatitis B Surface Antigen Negative (Negative)
[2023-12-07 06:59] LABS: HAV RESULT Negative (Negative); Hepatitis B Core IgM Result Negative (Negative)
[2023-12-07 07:04] LABS: Hemoglobin A1C 6.1 % (<5.7)
[2023-12-07 07:11] LABS: Hepatitis C Virus Antibody Negative (Negative)
[2023-12-07] MEDS: amLODIPine BESYLATE 5 MG TABLET 10 MG PO (09:32)
[2023-12-07] MEDS: PANTOPRAZOLE 40 MG TABLET PO ×2 (09:32→20:30)
[2023-12-07] MEDS: ENOXAPARIN 40 MG/0.4 ML SYRINGE SUB-Q (09:32)
[2023-12-07] MEDS: carvediloL 3.125 MG TABLET PO ×2 (09:32→20:29)
[2023-12-07] MEDS: OLMESARTAN MEDOXOMIL 20 MG TABLET 40 MG PO (09:32)
[2023-12-07] MEDS: SPIRONOLACTONE 25 MG TABLET PO (09:32)
--- NOTE | 2023-12-07 13:33 | P.PNIM_ITS ---
Progress Note: A&P Assessment and Plan (1) H. pylori infection: Code(s): A04.8 - Other specified bacterial intestinal infections Status: Acute Assessment and Plan: * H.Pylori infection * Consult GI * Continue Tetracycline, PPI, Pepto-Bismol and Flagyl due to multiple QT prolonging agents. * Supportive Treatment * Continue anti-emetics (2) Hyponatremia: Code(s): E87.1 - Hypo-osmolality and hyponatremia Status: Acute Assessment and Plan: * Hold HCTZ * PRN Hydralazine for elevated BP * NS at 100 ml/hr ordered. * Trend labs and VS. * Monitor for any Neuro changes. * Urine osmolality is pending. (3) Schizotypal personality disorder: Code(s): F21 - Schizotypal disorder Status: Acute Assessment and Plan: * Continue Seroquel * PRN Ativan ordered * Ambien 5 mg for sleep ordered. (4) HLD (hyperlipidemia): Code(s): E78.5 - Hyperlipidemia, unspecified Status: Acute Assessment and Plan: * Hold Statin in the place of elevated LFT's. * Heart healthy diet (5) HTN (hypertension): Code(s): I10 - Essential (primary) hypertension Status: Acute Assessment and Plan: * Holding HCTZ in setting of acute hyponatremia * PRN Hydralazine is ordered. (6) Elevated liver enzymes: Code(s): R74.8 - Abnormal levels of other serum enzymes Status: Acute Assessment and Plan: * As noted per labs * CT Abd and pelvis is negative for any enciting factors. * Hold statin * MOnitor labs and trend * Negative Hepatitis Panel * GI is consulted. (7) Hyperglycemia: Code(s): R73.9 - Hyperglycemia, unspecified Status: Acute Assessment and Plan: * A1C is 6.1. * Heart Healthy Diet (8) Abnormal finding on urinalysis: Code(s): R82.90 - Unspecified abnormal findings in urine Status: Acute Assessment and Plan: * Suspect contaminate * Continue to monitor VS * Urine culture pending Time Spent With Patient Time with patient: 15 - 25 minutes Subjective Date/time seen: 12/07/23 1100 Interval history: This pt is examined at the bedside in interval assessment after being admitted to the hospital with N/V, recent H.pylori infection, and dehydration. She has been very anxious complaining that she has not slept well and she has been labile with her emotions. She is awaiting a GI consult and is currently receiving treatment for H.pylori with Tetracycline, Flagyl, Pepto-Bismol and PPI therapy. She has not had any further N/V and has no overt abdominal pain. Review of Systems Review of Systems: All systems reviewed & are unremarkable except as noted in HPI and below Exam Narrative: General:Well developed well nourished patient HEENT: Normocephalic, atraumatic, PERRL, Sclerae anicteric, oral mucosa moist. Neck: Supple Resp: CTA Heart: RRR with no murmurs Abd: Soft, nondistended. No pain to palpation to any quadrants. Positive bowel sounds Skin: Warm and dry Extremities: No swelling, erythema or pain to palpation Neuro: Alert and Oriented x4 . CN 2-12 intact. No focal neurological deficits. Telemetry without abnormal alarm reviews Psych: Anxious Objective Data Vital Signs Vital Signs: Vital Signs - 24 hr 12/06/23 16:00 12/06/23 21:11 12/06/23 2
--- NOTE | 2023-12-07 13:33 | PM.IMPN ---
Progress Note: A&P Assessment and Plan (1) H. pylori infection: Code(s): A04.8 - Other specified bacterial intestinal infections Status: Acute Assessment and Plan: H.Pylori infection Consult GI Continue Tetracycline, PPI, Pepto-Bismol and Flagyl due to multiple QT prolonging agents. Supportive Treatment Continue anti-emetics (2) Hyponatremia: Code(s): E87.1 - Hypo-osmolality and hyponatremia Status: Acute Assessment and Plan: Hold HCTZ PRN Hydralazine for elevated BP NS at 100 ml/hr ordered. Trend labs and VS. Monitor for any Neuro changes. Urine osmolality is pending. (3) Schizotypal personality disorder: Code(s): F21 - Schizotypal disorder Status: Acute Assessment and Plan: Continue Seroquel PRN Ativan ordered Ambien 5 mg for sleep ordered. (4) HLD (hyperlipidemia): Code(s): E78.5 - Hyperlipidemia, unspecified Status: Acute Assessment and Plan: Hold Statin in the place of elevated LFT's. Heart healthy diet (5) HTN (hypertension): Code(s): I10 - Essential (primary) hypertension Status: Acute Assessment and Plan: Holding HCTZ in setting of acute hyponatremia PRN Hydralazine is ordered. (6) Elevated liver enzymes: Code(s): R74.8 - Abnormal levels of other serum enzymes Status: Acute Assessment and Plan: As noted per labs CT Abd and pelvis is negative for any enciting factors. Hold statin MOnitor labs and trend Negative Hepatitis Panel GI is consulted. (7) Hyperglycemia: Code(s): R73.9 - Hyperglycemia, unspecified Status: Acute Assessment and Plan: A1C is 6.1. Heart Healthy Diet (8) Abnormal finding on urinalysis: Code(s): R82.90 - Unspecified abnormal findings in urine Status: Acute Assessment and Plan: Suspect contaminate Continue to monitor VS Urine culture pending Time Spent With Patient Time with patient: 15 - 25 minutes Subjective Date/time seen: 12/07/23 1100 Interval history: This pt is examined at the bedside in interval assessment after being admitted to the hospital with N/V, recent H.pylori infection, and dehydration. She has been very anxious complaining that she has not slept well and she has been labile with her emotions. She is awaiting a GI consult and is currently receiving treatment for H.pylori with Tetracycline, Flagyl, Pepto-Bismol and PPI therapy. She has not had any further N/V and has no overt abdominal pain. Review of Systems Review of Systems: All systems reviewed & are unremarkable except as noted in HPI and below Exam Narrative: General:Well developed well nourished patient HEENT: Normocephalic, atraumatic, PERRL, Sclerae anicteric, oral mucosa moist. Neck: Supple Resp: CTA Heart: RRR with no murmurs Abd: Soft, nondistended. No pain to palpation to any quadrants. Positive bowel sounds Skin: Warm and dry Extremities: No swelling, erythema or pain to palpation Neuro: Alert and Oriented x4 . CN 2-12 intact. No focal neurological deficits. Telemetry without abnormal alarm reviews Psych: Anxious Objective Data Vital Signs Vital Signs: Vital Signs - 24 hr 12/06/23 16:00 12/06/23 21:11 12/06/23 21:28 Temperature 98.9 F Pulse Rate 81 88 82 Respiratory Rate 18 Blood Pressure 143/76 H Pulse Oximetry 95 Oxygen Delivery 12/06/23 20:00 12/06/23 20:00 12/07/23 00:00 Temperature Pulse Rate 80 89 Respiratory Rate Blood Pressure Pulse Oximetry Oxygen Delivery Room Air 12/07/23 04:00 12/07/23 06:00 12/07/23 09:32 Temperature 97.0 F L Pulse Rate 65 70 68 Respiratory Rate 20 Blood Pressure 134/77 Pulse Oximetry 98 Oxygen Delivery 12/07/23 08:00 Temperature Pulse Rate 88 Respiratory Rate Blood Pressure Pulse Oximetry Oxygen Delivery Intake/Output Intake/Output: Intake
[2023-12-07] MEDS: LORazepam (*CRX) 0.5 MG TABLET PO (14:39)
--- NOTE | 2023-12-07 15:05 | WPDGICN ---
Assessment and Plan Assessment and plan (1) Nausea and vomiting in adult: Code(s): R11.2 - Nausea with vomiting, unspecified Status: Acute Assessment and Plan: will proceed with egd tomorrow and bx just recently started on treated for H pylori, will need 2 weeks of treatment also dyspepsia and lack of appetite with some weight loss CT scan reviewed (2) H. pylori infection: Code(s): A04.8 - Other specified bacterial intestinal infections Status: Acute Assessment and Plan: diagnosed but abnormal breathing test (3) Hyponatremia: Code(s): E87.1 - Hypo-osmolality and hyponatremia Status: Acute Assessment and Plan: by primary (4) Dehydration: Code(s): E86.0 - Dehydration Status: Acute (5) Elevated liver enzymes: Code(s): R74.8 - Abnormal levels of other serum enzymes Status: Acute Assessment and Plan: probably from nausea, CT scan reviewed mild elevated negative hepatitis panel (6) Dyspepsia: Code(s): R10.13 - Epigastric pain Status: Acute Assessment and Plan: egd tomorrow (7) Weight loss: Code(s): R63.4 - Abnormal weight loss Status: Acute GI Consult Note Consult date/time: 12/07/23 15:05 Reason for consult: n/v, dyspepsia HPI: Nuris Baird is a 68 year old female with past medical history of hypertension, hyperlipidemia, and insomnia using xanax and seroquel at bedtime who presents to the emergency room for nausea and vomiting for almost 1.5 month also dyspepsia and occasionally nausea. Finally just few days ago went to see her PCP, blood work revealed hyponatremia 129 and breathing test + H pylori, started on treatment but then could not tolerate antibiotics with more emesis. She has not been eating as much for last month and lost some weight. Finally admitted to hospital, better after iv fluids and started on ppi. Never had EGD, had colonoscopy 3 years ago which showed 2 benign polyps.?Na here 125. Review of Systems Constitutional: Constitutional: Denies chills Eyes: Eyes: Denies blurry vision ENT: Reports Normal hearing present Cardiovascular: Cardiovascular: Denies chest pain Respiratory: Respiratory: Denies cough Gastrointestinal: Gastrointestinal: Reports nausea and Reports vomiting Genitourinary: Genitourinary: Denies hematuria Musculoskeletal: Musculoskeletal: Denies arthralgias Integumentary/Breasts: Skin/Breast: Denies rash Neurologic: Denies Abnormal speech present Psychiatric: Psychiatric: Denies behavioral changes [facility] Past Medical History Medical History (Updated 12/07/23 @ 15:10 by James Yoo MD) Dyspepsia HLD (hyperlipidemia) HTN (hypertension) Hyperthyroidism Nausea and vomiting in adult Schizotypal personality disorder Weight loss Surgical History Surgical History (Updated 12/06/23 @ 17:45 by Kirsty Hannon PA-C) History of hysterectomy No pertinent past surgical history Family History Family History Father Cerebrovascular accident Hypertension Social History Social History (Updated 12/06/23 @ 17:46 by Kirsty Hannon PA-C) Smoking packs per day: 1 Smoking cigarettes per day: 20.0 Years smoked: 20 Smoking pack-years: 20.00 Smoking status: Former smoker Tobacco type: cigarettes Second hand tobacco smoke exposure: No Additional smoking assessment comments: Quit smoking 1 year ago Alcohol intake: never Substance use: never Do You Feel Safe in your Home?: Yes Lack of Transportation: No Lack of Food: Never True Current Housing: I Have Housing Concerned About Future Housing: No Difficulty Paying Gas/Electric Bills: No Difficulty Paying for Meds: No Currently Unemployed: No Education: Trade/Vocational Certificate Difficulty w/ Childcare or Family Care: No Spiritual care concerns: No Meds Home Medication
[2023-12-07] MEDS: ZOLPIDEM TARTRATE (*CRX) 5 MG TABLET PO (20:29)
[2023-12-07] MEDS: traZODone HCL 50 MG TABLET 100 MG PO (20:30)
[2023-12-07] MEDS: QUEtiapine FUMARATE 100 MG TABLET PO (20:30)
[2023-12-07] MEDS: SODIUM CHLORIDE 0.9% IV 1,000 ML 100 ML IV CONT (23:04)
[2023-12-08] VITALS (12 sets, daily range): BP systolic 123–155; BP diastolic 81–98; PULSE 66–96; RESP 16–25; TEMP 36.2–37.3; O2SAT 96–98
[2023-12-08 05:50] LABS: Alanine Aminotransferase 61 U/L (6-35); Albumin Level 3.4 g/dL (3.5-5.1); Alkaline Phosphatase 61 U/L (38-126); Anion Gap 8 mmol/L (8-16); Aspartate Amino Transferase 32 U/L (14-36); Bilirubin,Total 0.5 mg/dL (0.2-1.3); Blood Urea Nitrogen 3 mg/dL (7-17); Calcium 8.6 mg/dL (8.4-10.2); Carbon Dioxide 20 mmol/L (22-30); Chloride 102 mmol/L (98-107); Estimated CRCL calculation 72 ml/min; Estimated Glomerular Filt Rate > 60; Glucose 97 mg/dL (65-110); Magnesium 1.8 mg/dL (1.6-2.3); Potassium 3.3 mmol/L (3.4-5.0); Sodium 130 mmol/L (137-145)
[2023-12-08] MEDS: metroNIDAZOLE 500 MG/ISO 100ML 500 MG/100 ML BAG 100 MG IVPB ×3 (06:30→20:58)
[2023-12-08] MEDS: BISMUTH SUBSALICYLATE 262 MG CHEWABLE TABLET 524 MG PO ×3 (06:31→17:28)
[2023-12-08] MEDS: TETRACYCLINE HCL 250 MG CAPSULE 500 MG PO ×3 (06:31→17:28)
--- NOTE | 2023-12-08 06:44 | PC.NURSE ---
GI LAB PREOP REPORT GIVEN TO JOHN. CONSENT SIGNED AND ON CHART. VERIFIED PATIENT NPO.
--- NOTE | 2023-12-08 07:21 | P.CDI_ITS ---
The amount of deficit is unknown. CDI Query Clarification Request BMI 33.1 Nutritional Diagnostic Statement Moderate malnutrition as related to inadequate oral intake in the setting of acute nausea and vomiting as evidenced by <75% of estimated protein needs >7 days; weight loss of 11 lbs or 6% in 6 weeks. Please refer tot he comprehensive nutrition assessment for further information. Please clarify severity of protein calorie malnutrition if known * Mild * Moderate * Severe * Other/Unspecified
[2023-12-08] MEDS: LACTATED RINGERS 1,000 ML 150 ML IV CONT (12:00)
--- NOTE | 2023-12-08 12:28 | WPDANESEPPF ---
Anes - Initial Pre Proc Eval Procedure: Operation Date: 12/08/23 12:00 Proposed Procedures p Esophagogastroduodenoscopy - James Yoo MD Date/Time: 12/08/23 12:28 Surgeon: EMMA Richardson Pre Op Diagnosis: hyponatremia,dehydration Patient Data Age: 68 Gender: F Height: 1.52 m Weight: 77 kg Last Vital Signs Temp 97.2 F L 12/08/23 11:52 Pulse 78 12/08/23 11:52 Resp 19 12/08/23 11:52 BP 123/88 12/08/23 11:52 Pulse Ox 98 12/08/23 11:52 O2 Del Method Room Air 12/08/23 11:52 Allergies Allergy/AdvReac Type Severity Reaction Status Date / Time No Known Allergies Allergy Mild Verified 12/08/23 11:49 Home Medications Medication Instructions Recorded Confirmed Type amlodipine 10 mg tablet 10 mg PO DAILY 90 days #90 tabs 10/19/20 12/06/23 Rx rosuvastatin 20 mg tablet 20 mg PO DAILY 90 days #90 tabs 10/19/20 12/06/23 Rx olmesartan 40 1 tablet PO DAILY 90 days #90 tabs 12/22/20 12/06/23 Rx mg-hydrochlorothiazide 25 mg tablet carvedilol 3.125 mg tablet 3.125 mg PO BID 11/28/22 12/06/23 History quetiapine 200 mg tablet 100 mg PO HS 11/28/22 12/06/23 History ergocalciferol (vitamin D2) 1,250 See Rx Instructions .Route .COMPLEX 12/06/23 12/06/23 History mcg (50,000 unit) capsule spironolactone 25 mg tablet 25 mg PO DAILY 12/06/23 12/06/23 History trazodone 100 mg tablet 100 - 200 mg PO PRN PRN Insomnia 12/06/23 12/06/23 History Laboratory Tests 12/08/23 05:32 Sodium 130 L mmol/L (137-145) Potassium 3.3 L mmol/L (3.4-5.0) Chloride 102 mmol/L (98-107) Carbon Dioxide 20 L mmol/L (22-30) Anion Gap 8 mmol/L (8-16) BUN 3 L mg/dL (7-17) Creatinine 0.60 L mg/dL (0.7-1.0) Estim Creat Clear Calc 72 ml/min Estimated GFR > 60 (59 - ) Glucose 97 mg/dL (65-110) Calcium 8.6 mg/dL (8.4-10.2) Magnesium 1.8 mg/dL (1.6-2.3) Total Bilirubin 0.5 mg/dL (0.2-1.3) AST 32 U/L (14-36) ALT 61 H U/L (6-35) Alkaline Phosphatase 61 U/L (38-126) Total Protein 6.0 L g/dL (6.3-8.2) Albumin 3.4 L g/dL (3.5-5.1) Patient hx anesthesia problems: none Family hx anesthesia problems: none Results Review: All pre-operative results and documents have been reviewed as part of the pre-operative evaluation. [facility] Past Medical History Medical History (Updated 12/07/23 @ 15:10 by James Yoo MD) Dyspepsia HLD (hyperlipidemia) HTN (hypertension) Hyperthyroidism Nausea and vomiting in adult Schizotypal personality disorder Weight loss Surgical History Surgical History (Updated 12/06/23 @ 17:45 by Kirsty Hannon PA-C) History of hysterectomy No pertinent past surgical history Family History Family History Father Cerebrovascular accident Hypertension Social History Social History (Updated 12/06/23 @ 17:46 by Kirsty Hannon PA-C) Smoking packs per day: 1 Smoking cigarettes per day: 20.0 Years smoked: 20 Smoking pack-years: 20.00 Smoking status: Former smoker Tobacco type: cigarettes Second hand tobacco smoke exposure: No Additional smoking assessment comments: Quit smoking 1 year ago Alcohol intake: never Substance use: never Do You Feel Safe in your Home?: Yes Lack of Transportation: No Lack of Food: Never True Current Housing: I Have Housing Concerned About Future Housing: No Difficulty Paying Gas/Electric Bills: No Difficulty Paying for Meds: No Currently Unemployed: No Education: Trade/Vocational Certificate Difficulty w/ Childcare or Family Care: No Spiritual care concerns: No Anes - Eval Final PreProcedure Day of Procedure 12/08/23 12:28 Patient weight: obese Heart: regular rate and rhythm Lungs: clear to auscultation Airway: Mallampati scale class III Neurological: alert and oriented Last oral intake: >/= 8 hours ASA c
[2023-12-08] MEDS: SODIUM CHLORIDE 0.9% IV 1,000 ML 100 ML IV CONT (13:43)
[2023-12-08] MEDS: POTASSIUM CHLORIDE 20 MEQ ER TABLET 40 MEQ PO (14:06)
--- NOTE | 2023-12-08 14:06 | P.PNIM_ITS ---
Progress Note: A&P Assessment and Plan (1) H. pylori infection: Code(s): A04.8 - Other specified bacterial intestinal infections Status: Acute Assessment and Plan: * H.Pylori infection history * Consulted GI and they are going to do EGD tomorrow * Continue Tetracycline, PPI, Pepto-Bismol and Flagyl due to multiple QT prolonging agents. * Supportive Treatment * Continue anti-emetics * 12/08/23: S/P EGD today that showed Gastritis. Pt still doesn't feel like eating but reports improved nausea. She appears comfortable. H.pylori bx obtained in EGD today. In interim time will continue previously ordered H.pylori therapy, and evaluate pt's intake overnight. Possible discharge tomorrow. (2) Hyponatremia: Code(s): E87.1 - Hypo-osmolality and hyponatremia Status: Acute Assessment and Plan: * Hold HCTZ * PRN Hydralazine for elevated BP * NS at 100 ml/hr ordered. * Trend labs and VS. * Monitor for any Neuro changes. * Urine osmolality is pending. * 12/08/23: Interval improvement in Sodium to 130 with IVF. Will continue to correct overnight and re-evaluate. (3) Schizotypal personality disorder: Code(s): F21 - Schizotypal disorder Status: Acute Assessment and Plan: * Continue Seroquel * PRN Ativan ordered * Ambien 5 mg for sleep ordered. * 12/08/23: Continue home meds and prn meds. (4) HLD (hyperlipidemia): Code(s): E78.5 - Hyperlipidemia, unspecified Status: Acute Assessment and Plan: * Hold Statin in the place of elevated LFT's. * Heart healthy diet * 12/08/23: Continue heart healthy diet (5) HTN (hypertension): Code(s): I10 - Essential (primary) hypertension Status: Acute Assessment and Plan: * Holding HCTZ in setting of acute hyponatremia * PRN Hydralazine is ordered. * 12/08/23: Continue to hold HCTZ in the setting of hyponatremia. We have had some interval improvement in overall sodium level. Continue to monitor BP. It is ranging 120s-140s/80s-90s. PRN Hydralazine is ordered and on the chart for as needed. (6) Elevated liver enzymes: Code(s): R74.8 - Abnormal levels of other serum enzymes Status: Acute Assessment and Plan: * As noted per labs * CT Abd and pelvis is negative for any enciting factors. * Hold statin * MOnitor labs and trend * Negative Hepatitis Panel * GI is consulted. * 12/08/23: Overall improvement in LFT's. Bilirubin is normal. Will recheck in AM and likely restart Statin therapy. (7) Hyperglycemia: Code(s): R73.9 - Hyperglycemia, unspecified Status: Acute Assessment and Plan: * A1C is 6.1. * Heart Healthy Diet (8) Abnormal finding on urinalysis: Code(s): R82.90 - Unspecified abnormal findings in urine Status: Ruled-out Assessment and Plan: * Suspect contaminate * Continue to monitor VS * Urine culture pending * 12/08/23: Urine cx result shows contaminate. Plan Monitor pt further overnight and likely discharge tomorrow. Time Spent With Patient Time with patient: 15 - 25 minutes Subjective Date/time seen: 12/08/23 14:06 Interval history: This pt was examined at the bedside after undergoing an EGD today by Dr. Herrera. She was found to have Gastritis. She is back to the floor now and is feeling a little better, but states she still has no appetite. She has no new complaints today though to report. There has been no
--- NOTE | 2023-12-08 14:06 | PM.IMPN ---
Progress Note: A&P Assessment and Plan (1) H. pylori infection: Code(s): A04.8 - Other specified bacterial intestinal infections Status: Acute Assessment and Plan: H.Pylori infection history Consulted GI and they are going to do EGD tomorrow Continue Tetracycline, PPI, Pepto-Bismol and Flagyl due to multiple QT prolonging agents. Supportive Treatment Continue anti-emetics 12/08/23: S/P EGD today that showed Gastritis. Pt still doesn't feel like eating but reports improved nausea. She appears comfortable. H.pylori bx obtained in EGD today. In interim time will continue previously ordered H.pylori therapy, and evaluate pt's intake overnight. Possible discharge tomorrow. (2) Hyponatremia: Code(s): E87.1 - Hypo-osmolality and hyponatremia Status: Acute Assessment and Plan: Hold HCTZ PRN Hydralazine for elevated BP NS at 100 ml/hr ordered. Trend labs and VS. Monitor for any Neuro changes. Urine osmolality is pending. 12/08/23: Interval improvement in Sodium to 130 with IVF. Will continue to correct overnight and re-evaluate. (3) Schizotypal personality disorder: Code(s): F21 - Schizotypal disorder Status: Acute Assessment and Plan: Continue Seroquel PRN Ativan ordered Ambien 5 mg for sleep ordered. 12/08/23: Continue home meds and prn meds. (4) HLD (hyperlipidemia): Code(s): E78.5 - Hyperlipidemia, unspecified Status: Acute Assessment and Plan: Hold Statin in the place of elevated LFT's. Heart healthy diet 12/08/23: Continue heart healthy diet (5) HTN (hypertension): Code(s): I10 - Essential (primary) hypertension Status: Acute Assessment and Plan: Holding HCTZ in setting of acute hyponatremia PRN Hydralazine is ordered. 12/08/23: Continue to hold HCTZ in the setting of hyponatremia. We have had some interval improvement in overall sodium level. Continue to monitor BP. It is ranging 120s-140s/80s-90s. PRN Hydralazine is ordered and on the chart for as needed. (6) Elevated liver enzymes: Code(s): R74.8 - Abnormal levels of other serum enzymes Status: Acute Assessment and Plan: As noted per labs CT Abd and pelvis is negative for any enciting factors. Hold statin MOnitor labs and trend Negative Hepatitis Panel GI is consulted. 12/08/23: Overall improvement in LFT's. Bilirubin is normal. Will recheck in AM and likely restart Statin therapy. (7) Hyperglycemia: Code(s): R73.9 - Hyperglycemia, unspecified Status: Acute Assessment and Plan: A1C is 6.1. Heart Healthy Diet (8) Abnormal finding on urinalysis: Code(s): R82.90 - Unspecified abnormal findings in urine Status: Ruled-out Assessment and Plan: Suspect contaminate Continue to monitor VS Urine culture pending 12/08/23: Urine cx result shows contaminate. Plan Monitor pt further overnight and likely discharge tomorrow. Time Spent With Patient Time with patient: 15 - 25 minutes Subjective Date/time seen: 12/08/23 14:06 Interval history: This pt was examined at the bedside after undergoing an EGD today by Dr. Herrera. She was found to have Gastritis. She is back to the floor now and is feeling a little better, but states she still has no appetite. She has no new complaints today though to report. There has been no emesis today or since she has been admitted. Review of Systems Review of Systems: All systems reviewed & are unremarkable except as noted in HPI and below Exam Narrative: General:Well developed well nourished patient HEENT: Normocephalic, atraumatic, PERRL, Sclerae anicteric, oral mucosa moist. Neck: Supple Resp: CTA Heart: RRR with no murmurs Abd: Soft, nondistended. No pain to palpation to any quadrants. Positive bowel sounds Skin: Warm and dry Extremities: No swelling, erythema or pain to palpation Neuro: Alert and O
[2023-12-08] MEDS: PANTOPRAZOLE 40 MG TABLET PO ×2 (14:07→20:57)
[2023-12-08] MEDS: SPIRONOLACTONE 25 MG TABLET PO (14:07)
[2023-12-08] MEDS: amLODIPine BESYLATE 5 MG TABLET 10 MG PO (14:07)
[2023-12-08] MEDS: OLMESARTAN MEDOXOMIL 20 MG TABLET 40 MG PO (14:07)
[2023-12-08] MEDS: ENOXAPARIN 40 MG/0.4 ML SYRINGE SUB-Q (14:08)
[2023-12-08] MEDS: LORazepam (*CRX) 0.5 MG TABLET PO (14:18)
[2023-12-08] MEDS: ONDANSETRON INJ 4 MG/2 ML VIAL IV PUSH (18:29)
[2023-12-08] MEDS: ZOLPIDEM TARTRATE (*CRX) 5 MG TABLET PO (20:57)
[2023-12-08] MEDS: traZODone HCL 50 MG TABLET 100 MG PO (20:57)
[2023-12-08] MEDS: carvediloL 3.125 MG TABLET PO (20:57)
[2023-12-08] MEDS: QUEtiapine FUMARATE 100 MG TABLET PO (20:58)
[2023-12-08 21:09] LABS: Osmolality, Urine 322 mOsm/kg (50-1200)
[2023-12-09] VITALS: PULSE 67
[2023-12-09] MEDS: TETRACYCLINE HCL 250 MG CAPSULE 500 MG PO ×2 (01:19→05:35)
[2023-12-09] MEDS: BISMUTH SUBSALICYLATE 262 MG CHEWABLE TABLET 524 MG PO ×2 (01:20→05:42)
[2023-12-09 04:00] VITALS: PULSE 72
[2023-12-09] MEDS: metroNIDAZOLE 500 MG/ISO 100ML 500 MG/100 ML BAG 100 MG IVPB (05:44)
[2023-12-09 05:46] VITALS: BP 152/86; PULSE 95; RESP 18; TEMP 36.6; O2SAT 97
[2023-12-09] MEDS: ONDANSETRON INJ 4 MG/2 ML VIAL IV PUSH (05:46)
[2023-12-09 05:50] LABS: Basophils Absolute Auto 0.1 K/mm3 (0.0-0.1); Eosinophils Absolute Auto 0.1 K/mm3 (0-0.3); Eosinophils Percent Auto 1.8 % (0-4.4); Hematocrit 32.8 % (37.0-47.0); Hemoglobin 11.2 g/dL (12.0-15.0); Immature Granulocyte Absolute 0.02 K/mm3 (0.00-0.031); Immature Granulocyte Percent A 0.3 % (0-0.5); Lymphocytes Absolute Auto 1.89 K/mm3 (0.9-3.2); Lymphocytes Percent Auto 26.8 % (18.3-44.2); Mean Corpuscular HGB Conc 34.1 g/dl (32-36); Mean Corpuscular Hemoglobin 31.1 pg (26-34); Mean Corpuscular Volume 91.1 fl (80-100); Monocytes Absolute Auto 0.7 K/mm3 (0.1-0.6); Monocytes Percent Auto 10.4 % (2.6-8.5); Neutrophils Absolute Auto 4.2 K/mm3 (1.3-6.7); Neutrophils Percent Auto 59.7 % (45.5-73.1); Platelet Count Result 275 k/mm3 (150-375)
[2023-12-09 06:04] LABS: Alanine Aminotransferase 54 U/L (6-35); Albumin Level 3.6 g/dL (3.5-5.1); Alkaline Phosphatase 60 U/L (38-126); Anion Gap 9 mmol/L (8-16); Aspartate Amino Transferase 27 U/L (14-36); Bilirubin,Total 0.5 mg/dL (0.2-1.3); Blood Urea Nitrogen 2 mg/dL (7-17); Calcium 9.1 mg/dL (8.4-10.2); Carbon Dioxide 22 mmol/L (22-30); Chloride 103 mmol/L (98-107); Estimated CRCL calculation 62 ml/min; Estimated Glomerular Filt Rate > 60; Glucose 94 mg/dL (65-110); Magnesium 1.7 mg/dL (1.6-2.3); Potassium 3.4 mmol/L (3.4-5.0); Sodium 134 mmol/L (137-145)
[2023-12-09 08:00] VITALS: PULSE 81
[2023-12-09 08:41] VITALS: PULSE 90
[2023-12-09] MEDS: carvediloL 3.125 MG TABLET PO (08:41)
[2023-12-09] MEDS: SPIRONOLACTONE 25 MG TABLET PO (08:41)
[2023-12-09] MEDS: ENOXAPARIN 40 MG/0.4 ML SYRINGE SUB-Q (08:41)
[2023-12-09] MEDS: OLMESARTAN MEDOXOMIL 20 MG TABLET 40 MG PO (08:41)
[2023-12-09] MEDS: amLODIPine BESYLATE 5 MG TABLET 10 MG PO (08:41)
[2023-12-09] MEDS: PANTOPRAZOLE 40 MG TABLET PO (08:42)
--- NOTE | 2023-12-09 09:20 | PC.NURSE ---
Pt removed tele this AM . Pt states shes going home .
--- NOTE | 2023-12-09 09:42 | P.DS_ITS ---
DS: Admitting Diagnosis Discharge Date 12/09/2023 Admitting Diagnosis H. pylori infection Hyponatremia Schizotypal personality disorder HLD HTN Abnormal Urinalysis DS: Discharge Diagnosis Discharge Diagnosis (1) H. pylori infection: Code(s): A04.8 - Other specified bacterial intestinal infections Status: Acute Assessment and Plan: * H.Pylori infection history * Consulted GI and they are going to do EGD tomorrow * Continue Tetracycline, PPI, Pepto-Bismol and Flagyl due to multiple QT pr olonging agents. * Supportive Treatment * Continue anti-emetics * 12/08/23: S/P EGD today that showed Gastritis. Pt still doesn't feel like eating but reports improved nausea. She appears comfortable. H.pylori bx obtained in EGD today. In interim time will continue previously ordered H.pylori therapy, and evaluate pt's intake overnight. Possible discharge tomorrow. * 12/09/23, Date of discharge: Pt without any further complaints this morning. She has been able to eat and reportedly feels much better. She is cleared per GI for outpatient follow up at this time. She has no further acute complaints and no new symptoms to report. Biopsy was taken during EGD yesterday by Dr. Herrera and in the interim, we will continue the current treatment of Tetracycline, PPI, Pepto-Bismol and Flagyl on discharge. (2) Hyponatremia: Code(s): E87.1 - Hypo-osmolality and hyponatremia Status: Acute Assessment and Plan: * Hold HCTZ * PRN Hydralazine for elevated BP * NS at 100 ml/hr ordered. * Trend labs and VS. * Monitor for any Neuro changes. * Urine osmolality is pending. * 12/08/23: Interval improvement in Sodium to 130 with IVF. Will continue to correct overnight and re-evaluate. * 12/09/23, Date of discharge: Interval improvement to 134. Pt's fluids discontinued through the night as she lost IV access. She is stable for discharge to home today and follow up with PCP. Will re-initiate her HCTZ on discharge. (3) Schizotypal personality disorder: Code(s): F21 - Schizotypal disorder Status: Acute Assessment and Plan: * Continue Seroquel * PRN Ativan ordered * Ambien 5 mg for sleep ordered. * 12/08/23: Continue home meds and prn meds. * 12/09/23, Date of discharge: Continue all home meds upon discharge. (4) HLD (hyperlipidemia): Code(s): E78.5 - Hyperlipidemia, unspecified Status: Acute Assessment and Plan: * Hold Statin in the place of elevated LFT's. * Heart healthy diet * 12/08/23: Continue heart healthy diet * 12/09/23, Date of discharge: Continue heart healthy diet (5) HTN (hypertension): Code(s): I10 - Essential (primary) hypertension Status: Acute Assessment and Plan: * Holding HCTZ in setting of acute hyponatremia * PRN Hydralazine is ordered. * 12/08/23: Continue to hold HCTZ in the setting of hyponatremia. We have had some interval improvement in overall sodium level. Continue to monitor BP. It is ranging 120s-140s/80s-90s. PRN Hydralazine is ordered and on the chart for as needed. * 12/09/23, Date of discharge: Stable BP's. As pt's sodium is increased, we will restart her HCTZ upon discharge for further BP coverage. (6) Elevated liver enzymes: Code(s): R74.8 - Abnormal levels of other serum enzymes Status: Acute Assessment and Plan: * As noted per labs * CT Abd and pelvis is negative for any enciting factors. * Hold statin * MOnitor labs and trend * Negative Hepatitis Panel * GI is co
--- NOTE | 2023-12-09 09:42 | PM.DS ---
DS: Admitting Diagnosis Discharge Date 12/09/2023 Admitting Diagnosis H. pylori infection Hyponatremia Schizotypal personality disorder HLD HTN Abnormal Urinalysis DS: Discharge Diagnosis Discharge Diagnosis (1) H. pylori infection: Code(s): A04.8 - Other specified bacterial intestinal infections Status: Acute Assessment and Plan: H.Pylori infection history Consulted GI and they are going to do EGD tomorrow Continue Tetracycline, PPI, Pepto-Bismol and Flagyl due to multiple QT prolonging agents. Supportive Treatment Continue anti-emetics 12/08/23: S/P EGD today that showed Gastritis. Pt still doesn't feel like eating but reports improved nausea. She appears comfortable. H.pylori bx obtained in EGD today. In interim time will continue previously ordered H.pylori therapy, and evaluate pt's intake overnight. Possible discharge tomorrow. 12/09/23, Date of discharge: Pt without any further complaints this morning. She has been able to eat and reportedly feels much better. She is cleared per GI for outpatient follow up at this time. She has no further acute complaints and no new symptoms to report. Biopsy was taken during EGD yesterday by Dr. Herrera and in the interim, we will continue the current treatment of Tetracycline, PPI, Pepto-Bismol and Flagyl on discharge. (2) Hyponatremia: Code(s): E87.1 - Hypo-osmolality and hyponatremia Status: Acute Assessment and Plan: Hold HCTZ PRN Hydralazine for elevated BP NS at 100 ml/hr ordered. Trend labs and VS. Monitor for any Neuro changes. Urine osmolality is pending. 12/08/23: Interval improvement in Sodium to 130 with IVF. Will continue to correct overnight and re-evaluate. 12/09/23, Date of discharge: Interval improvement to 134. Pt's fluids discontinued through the night as she lost IV access. She is stable for discharge to home today and follow up with PCP. Will re-initiate her HCTZ on discharge. (3) Schizotypal personality disorder: Code(s): F21 - Schizotypal disorder Status: Acute Assessment and Plan: Continue Seroquel PRN Ativan ordered Ambien 5 mg for sleep ordered. 12/08/23: Continue home meds and prn meds. 12/09/23, Date of discharge: Continue all home meds upon discharge. (4) HLD (hyperlipidemia): Code(s): E78.5 - Hyperlipidemia, unspecified Status: Acute Assessment and Plan: Hold Statin in the place of elevated LFT's. Heart healthy diet 12/08/23: Continue heart healthy diet 12/09/23, Date of discharge: Continue heart healthy diet (5) HTN (hypertension): Code(s): I10 - Essential (primary) hypertension Status: Acute Assessment and Plan: Holding HCTZ in setting of acute hyponatremia PRN Hydralazine is ordered. 12/08/23: Continue to hold HCTZ in the setting of hyponatremia. We have had some interval improvement in overall sodium level. Continue to monitor BP. It is ranging 120s-140s/80s-90s. PRN Hydralazine is ordered and on the chart for as needed. 12/09/23, Date of discharge: Stable BP's. As pt's sodium is increased, we will restart her HCTZ upon discharge for further BP coverage. (6) Elevated liver enzymes: Code(s): R74.8 - Abnormal levels of other serum enzymes Status: Acute Assessment and Plan: As noted per labs CT Abd and pelvis is negative for any enciting factors. Hold statin MOnitor labs and trend Negative Hepatitis Panel GI is consulted. 12/08/23: Overall improvement in LFT's. Bilirubin is normal. Will recheck in AM and likely restart Statin therapy. 12/09/23, Date of discharge: Further declined and stable. Will restart Statin therapy today. (7) Hyperglycemia: Code(s): R73.9 - Hyperglycemia, unspecified Status: Acute Assessment and Plan: A1C is 6.1. Heart Healthy Diet 12/09/23, Date of discharge: Follow a heart healthy diet. A1C is 6.1. (8) Abnormal finding on urinalysis:
== END 2023-12-09 10:30 | disposition home or self-care (01) | DRG 392 ==
LOC: ANHED 10:20 → ANH3MED 12:17
PROVIDERS: Internal Medicine Gastroenterology; Physician Assistant; Admitting Provider Family Medicine; Emergency Provider Physician Assistant; PCP Emergency Medicine; Visit Provider Nurse Practitioner Adult Health
PROC: 0DJ08ZZ Inspection of Upper Intestinal Tract, Via Natural or Artificial Opening Endoscopic (ICD-10-PCS; CPT 43235; principal; 2023-12-08 12:00)
DX: R11.2 Nausea with vomiting, unspecified (principal); E87.1 Hypo-osmolality and hyponatremia; K29.70 Gastritis, unspecified, without bleeding; E86.0 Dehydration; I45.10 Unspecified right bundle-branch block; R63.4 Abnormal weight loss; E78.5 Hyperlipidemia, unspecified; F21 Schizotypal disorder; F41.9 Anxiety disorder, unspecified; G47.00 Insomnia, unspecified; R73.9 Hyperglycemia, unspecified; K43.9 Ventral hernia without obstruction or gangrene; E66.9 Obesity, unspecified; R68.81 Early satiety; Z20.822 Contact with and (suspected) exposure to COVID-19; Z87.891 Personal history of nicotine dependence; Z90.710 Acquired absence of both cervix and uterus; Z68.33 Body mass index [BMI] 33.0-33.9, adult; Z86.19 Personal history of other infectious and parasitic diseases
CPT/HCPCS: 36415; 74177; 80048; 80053; 80074; 80076; 81001; 83036; 83690; 83735; 83930; 83935; 84295; 84300; 84443; 85025; 87040; 87081; 87086; 87088; 87637; 88305; 93005; 96361; 96365; 96366; 96372; 96375; 96376; 99285; A9270; C9113; G0378; J1650; J1836; J2405; J2704; J7030; J7120; Q9967

== ENCOUNTER 2023-12-26 07:30 | Outpatient (CLI) | payer MEDICARE, MEDICAID, SELFPAY ==
--- NOTE | ~2023-12-26 | NM_ITS ---
EXAM: NM gastric emptying study DATE: 12/26/2023 12:07 INDICATION: Nausea with vomiting, unspecified. TECHNIQUE: A gastric emptying study was performed using the methodology of Spencer GOLDSMITH, et al. J Nucl Med 2007; 48:568-572. The patient was given a meal consisting of 2 scrambled eggs labeled with 0.981 mCi Tc-99m sulfur colloid, 2 slices of toast, two packages of jam, and approximately 120 mL of water . Simultaneous anterior and posterior 1-min images of the abdomen were obtained with the patient supi ne at multiple time points over a total period of 4 hours. The geometric mean of anterior and posteri or views was determined, and the percentage retention was calculated for each time point. COMPARISON: CT abdomen and pelvis 12/06/2023 FINDINGS: Gastric retention of the radiotracer-labeled meal was 42%, 12%, and 2% at the 1-hour, 2-ho ur, and 4-hour time points, respectively. With this technique, apparent rapid gastric emptying is sug gested by <30% gastric retention at 1 hour. Delayed gastric emptying is defined by gastric retention of >90% at 1 hour, >60% retention at 2 hours, or >10% retention at 4 hours. IMPRESSION: 1. Normal gastric emptying. Reviewed, dictated and finalized at location A. D [employer] IMPRESSION: 1. Normal gastric emptying.
== END 2023-12-26 07:31 | disposition home or self-care (01) ==
LOC: ANHIMG 07:34
PROVIDERS: PCP Emergency Medicine; Visit Provider Internal Medicine Gastroenterology
DX: R11.2 Nausea with vomiting, unspecified (principal)
CPT/HCPCS: 78264; A9541

== ENCOUNTER 2024-06-26 08:13 | Outpatient (CLI) | payer MEDICARE, SELFPAY ==
--- NOTE | ~2024-06-26 | NM_ITS ---
EXAMINATION: NM hepatobiliary wo pharm DATE: 06/26/2024 11:00 INDICATION: Nausea and vomiting, unspecified. COMPARISON: CT abdomen and pelvis 12/06/2023 TECHNIQUE: 4.9 mCi Tc-99m mebrofenin (Choletec) was administered intravenously. Scintigraphic images of the abdomen were obtained for one hour. Then, the patient drank 8 oz Ensure, and imaging was cont inued for 60 minutes. FINDINGS: There is normal clearance of radiotracer from the blood pool. There is homogeneous tracer u ptake by the liver. Activity progresses to the bowel and gallbladder. Gallbladder ejection fraction (GBEF) was 19%. Note that with this technique, normal GBEF >= 33%. IMPRESSION: 1. Low gallbladder ejection fraction, consistent with gallbladder dysfunction and/or chronic cholecy stitis. Reviewed, dictated and finalized at location A. IMPRESSION: 1. Low gallbladder ejection fraction, consistent with gallbladder dysfunction and/or chronic cholecystitis.
== END 2024-06-26 08:14 | disposition home or self-care (01) ==
LOC: ANHIMG 08:19
PROVIDERS: PCP Nurse Practitioner Family; Visit Provider Nurse Practitioner Family
DX: R93.2 Abnormal findings on diagnostic imaging of liver and biliary tract (principal)
CPT/HCPCS: 78226; A9537

== ENCOUNTER 2024-07-05 07:39 | Outpatient (CLI) | payer MEDICARE, MEDICAID, SELFPAY ==
[2024-07-05 09:25] LABS: Alanine Aminotransferase 22 U/L (6-35); Albumin Level 4.5 g/dL (3.5-5.1); Alkaline Phosphatase 77 U/L (38-126); Amylase 63 U/L (30-110); Aspartate Amino Transferase 24 U/L (14-36); Bilirubin,Total 0.5 mg/dL (0.2-1.3); Lipase 66 U/L (23-300)
[2024-07-05 09:33] LABS: Anion Gap 10 mmol/L (4-12); Blood Urea Nitrogen 6 mg/dL (7-17); Calcium 10.1 mg/dL (8.4-10.2); Carbon Dioxide 24 mmol/L (22-30); Chloride 104 mmol/L (98-107); Estimated Glomerular Filt Rate > 60; Glucose 95 mg/dL (65-110); Potassium 3.9 mmol/L (3.4-5.0); Sodium 138 mmol/L (137-145)
== END 2024-07-05 07:40 | disposition home or self-care (01) ==
PROVIDERS: Anesthesiology; PCP Nurse Practitioner Family; Visit Provider Surgery
DX: Z01.818 Encounter for other preprocedural examination (principal); K81.1 Chronic cholecystitis; Z51.81 Encounter for therapeutic drug level monitoring
CPT/HCPCS: 36415; 80048; 80076; 82150; 83690

== ENCOUNTER 2024-07-08 02:25 | Day surgery (SDC) | payer MEDICARE, MEDICAID, SELFPAY ==
[2024-07-04 09:20] VITALS: BMI 33.5
--- NOTE | 2024-07-04 09:50 | PC.NURSE ---
Report to the Outpatient Waiting Room, entrance under the green pavilion located off [facility], at time __11:15AM on date ___07/08/24____. Planned Procedure Time: __1:15PM . Time changes happen often and if your time is changed the preop area will call you the afternoon before. - You and your visitor will be asked to self-screen and do not enter if you have any COVID symptoms. - A mask is optional within the hospital at this time. Patients may have clear liquids (water, carbonated beverages, clear teas, apple juice) until 3 hours prior to surgery with a maximum of 20 ounces. - No food from midnight until time of surgery. Take the following medications with a SIP of water the morning of surgery: ____AMLODIPINE & CARVEDILOL. MAY TAKE ONDANSETRON NEEDED FOR NAUSEA DO NOT STOP ANY OF YOUR OTHER PRESCRIPTION MEDICATIONS PRIOR TO SURGERY ?EXCEPT THE FOLLOWING Medications to discontinue per physician ____HOLD ALL VITAMINS/SUPPLEMENTS 3 DAYS PRE-OP PER ANESTHESIA Date to take last dose____07/04/24 Please no make-up, nail occitan, hairspray, perfume, deodorant, or body powder the day of surgery. No jewelry (including any body piercings) or valuables the day of surgery, leave them at home. Please take a shower or bath the night before, or the morning of, surgery with an antibacterial soap. Wear comfortable, loose fitting clothing. - Jewelry must be removed prior to entering the operating room. Rings and piercings that are not removed may be cut off. - The hospital will not accept responsibility for valuables. - Please leave all valuables, including medications, at home the day of surgery. If you are going home after surgery, a licensed tram driver must drive you home. - NO public transportation without another adult if you receive anesthesia. - We recommend that an adult stay with you for 24 hours following discharge. - We also recommend that you do not drive, make important decision, drink alcoholic beverages, or take any drugs that were not prescribed by your health care provider for at least 24 hours after your discharge time. Follow any additional instructions given to you from your surgeon. If you or anyone in your household have experienced Covid symptoms in the past week, please notify your surgeon or the nurse liaison at the phone number below for possible testing. Telephone instructions given to ____PATIENT and asked if any additional questions and then verbalized understanding. Patient advised to call surgeon office or pre surgery nurse liaison [phone] if any additional questions.
[2024-07-08] VITALS (11 sets, daily range): BP systolic 136–169; BP diastolic 76–94; PULSE 63–88; RESP 12–20; TEMP 36.4–36.6; O2SAT 94–99; BMI 33.4
[2024-07-08] MEDS: LACTATED RINGERS 1,000 ML 30 ML IV CONT (11:35)
[2024-07-08] MEDS: ACETAMINOPHEN 500 MG TABLET 1000 MG PO (11:43)
[2024-07-08] MEDS: KETOROLAC 15 MG/ML VIAL (*BKC) IV PUSH (11:44)
--- NOTE | 2024-07-08 11:55 | WPDHPUPDATE1 ---
History and Physical Update Update Date/Time: 07/08/24 11:55 History and Physical has been reviewed, including an updated exam of the patient. There are NO changes in the patient's condition. Risks, benefits, and alternatives have been discussed and questions answered. Patient agrees to proceed with procedure.
--- NOTE | 2024-07-08 12:33 | WPDANESEPPF ---
Anes - Initial Pre Proc Eval Procedure: Operation Date: 07/08/24 13:15 Proposed Procedures p Laparoscopic Cholecystectomy - Carina Hampton MD Date/Time: 07/08/24 12:33 Surgeon: Carina Hampton MD Pre Op Diagnosis: chronic cholecystitis Patient Data Age: 68 Gender: F Height: 1.52 m Weight: 77.7 kg Allergies Allergy/AdvReac Type Severity Reaction Status Date / Time No Known Allergies Allergy Mild Verified 07/08/24 11:25 Home Medications Medication Instructions Recorded Confirmed Type rosuvastatin 20 mg tablet 20 mg PO DAILY 90 days #90 tabs 10/19/20 07/04/24 Rx quetiapine 200 mg tablet 100 mg PO HS 11/28/22 07/04/24 History ergocalciferol (vitamin D2) 1,250 See Rx Instructions .Route .COMPLEX 12/06/23 07/08/24 History mcg (50,000 unit) capsule spironolactone 25 mg tablet 25 mg PO DAILY 12/06/23 07/04/24 History trazodone 100 mg tablet 100 - 200 mg PO PRN PRN Insomnia 12/06/23 07/04/24 History amlodipine 10 mg tablet 10 mg PO DAILY 90 days #90 tabs 03/12/24 07/08/24 Rx tizanidine 4 mg capsule 4 mg PO QHS PRN Muscle Spasm 03/12/24 07/04/24 History carvedilol 6.25 mg tablet 6.25 mg PO Q12H #180 tabs 05/06/24 07/08/24 Rx omeprazole 20 mg capsule,delayed 20 mg PO DAILY #90 caps 05/20/24 07/04/24 Rx release olmesartan 40 mg tablet 40 mg PO DAILY #90 tabs 06/04/24 07/04/24 Rx ondansetron 4 mg disintegrating 4 mg PO Q8H PRN nausea and 06/20/24 07/04/24 Rx tablet vomiting #60 tabs lactobacillus combination no.8 3 3 cell PO DAILY 07/04/24 07/08/24 History billion cell capsule Patient hx anesthesia problems: none Family hx anesthesia problems: none Results Review: All pre-operative results and documents have been reviewed as part of the pre-operative evaluation. [facility] Past Medical History Medical History Dyspepsia Establishing care with new doctor, encounter for HLD (hyperlipidemia) HTN (hypertension) Hyperthyroidism Nausea and vomiting in adult Schizotypal personality disorder Weight loss Surgical History Surgical History History of hysterectomy No pertinent past surgical history Family History Family History Father Cerebrovascular accident Hypertension Mother Hypertension Sibling Alcoholism Social History Social History Smoking packs per day: 1 Smoking cigarettes per day: 20.0 Years smoked: 35 Smoking pack-years: 35.00 Smoking status: Former smoker Tobacco type: cigarettes Second hand tobacco smoke exposure: No Smoking end date: 07/28/21 Additional smoking assessment comments: Quit smoking 1 year ago Alcohol intake: never Substance use: never Do You Feel Safe in your Home?: Yes Lack of Transportation: No Lack of Food: Never True Current Housing: I Have Housing Concerned About Future Housing: No Difficulty Paying Gas/Electric Bills: No Difficulty Paying for Meds: No Currently Unemployed: No Education: Trade/Vocational Certificate Difficulty w/ Childcare or Family Care: No Living arrangements: with family Additional living arrangements comments: [facility] Gender identity (if verbalized by the patient): Female Spiritual care concerns: No Agree to blood products: Yes Anes - Eval Final PreProcedure Day of Procedure 07/08/24 12:33 Patient weight: normal Heart: regular rate and rhythm Lungs: clear to auscultation Airway: Mallampati scale Neurological: alert and oriented Last oral intake: >/= 8 hours ASA classification: II Emergent: no Anesthetic plan: proceed Anesthesia type and monitoring: general and standard monitoring Results Review: All pre-operative results and documents have been reviewed as part of the pre-operative evaluation. HTN, hyperlipidemia, long time ex smoker,
[2024-07-08] MEDS: ceFAZolin 2 GM/D5W 50 ML 2 GM/50 ML BAG IVPB (13:18)
[2024-07-08] MEDS: BUPIVACAINE/EPINEPHRINE 0.5% 10 ML VIAL 30 ML INFILTRATE (13:44)
--- NOTE | 2024-07-08 14:00 | W.PM.PROC2 ---
Procedure Note - Detailed Date of Procedure 07/08/24 Pre-op Diagnosis chronic cholecystitis Post-op Diagnosis Same Procedure Performed Laparoscopic cholecystectomy Surgeon Carina Hampton MD Anesthesia General Indications 68-year-old female presented to the office complaining of postprandial right upper quadrant abdominal pain associated with nausea and vomiting. Workup including imaging significant for chronic cholecystitis. Findings Chronic cholecystitis Description of Procedure The patient was taken to the operating room placed in the supine position. After adequate induction of general anesthesia, the patient was prepped and draped in normal sterile fashion. A time-out was then performed to verify the patient's identity as well as the procedure being performed. I then made a 5 mm incision in the infraumbilical region. Through this, a Veress needle was placed into the peritoneal cavity and CO2 gas was then insufflated. After adequate pneumoperitoneum was achieved, the Veress needle was removed and a 5 mm optiview trocar was placed through this incision under direct visualization. I then placed the laparoscope through this trocar site and under direct visualization placed a further 12 mm subxiphoid port as well as 2 additional 5 mm ports in the right upper abdomen. The gallbladder was then identified and was noted to be moderately inflamed and distended. I was able to place a grasper at the dome of the gallbladder and this was retracted anterior and cephalad up over the liver. A 2nd retractor was then placed at the infundibulum and retracted laterally, this allowed visualization of the triangle of Calot. I then was able to visualize the cystic duct in its entirety from its proximal insertion into the gallbladder, to its distal junction with the common hepatic/common bile duct junction. At this point, I carefully skeletonized the proximal cystic duct with the [place] dissector. I then clipped and transected the proximal cystic duct. Next I visualized the cystic artery. Again the artery was skeletonized, clipped, and transected. I then used the Bovie cautery to take down the peritoneal attachments of the gallbladder off the liver bed. Once the gallbladder specimen was completely detached, an endo-pouch was placed through the 12 mm port site. I then placed the gallbladder specimen into the Endo pouch and removed the endo-pouch from the 12 mm port site. The specimen will now be sent to pathology for further review. I then copiously irrigated the right upper quadrant. Hemostasis was noted in the liver bed, the clips were noted to be in good position on both the cystic duct stump and the cystic artery stump. No other pathology was noted in the right upper quadrant. I then moved the laparoscope to the subxiphoid port. No iatrogenic injury or other pathology was noted in the lower abdomen. I then closed the 12 mm trocar site under direct visualization using the Abiel cone and 0 Vicryl suture. At this point, the abdomen was desufflated and all ports removed. All port sites were then closed with 4.O Monocryl subcuticular sutures. Dermabond was placed on each incision. The patient tolerated the procedure well, was extubated in the operating room postoperative and will be transferred to the recovery room in stable condition Estimated Blood Loss 5 Drains No Packing No Pathology Yes Complications No immediate complications Condition Stable Disposition PACU [facility] Billing Surgery - Charge Forward: Surgery Billing
[2024-07-08] MEDS: ONDANSETRON INJ 4 MG/2 ML VIAL IV PUSH (14:17)
[2024-07-08] MEDS: fentaNYL CITRATE INJ (*CRX) 100 MCG/2 ML VIAL 25 MCG IV PUSH ×8 (14:39→15:19)
[2024-07-08] MEDS: diphenhydrAMINE HCl INJ 50 MG/ML VIAL 12.5 MG IV PUSH (15:04)
[2024-07-08] MEDS: HYDROmorphone HCL INJ (*CRX) 1 MG/ML SYR 0.25 MG IV PUSH (15:33)
== END 2024-07-08 16:46 | disposition home or self-care (01) ==
PROVIDERS: PCP Nurse Practitioner Family; Visit Provider Surgery
PROC: 0FT44ZZ Resection of Gallbladder, Percutaneous Endoscopic Approach (ICD-10-PCS; CPT 47562; principal; 2024-07-08 13:15)
DX: K81.1 Chronic cholecystitis (principal); I10 Essential (primary) hypertension; E78.5 Hyperlipidemia, unspecified; E05.90 Thyrotoxicosis, unspecified without thyrotoxic crisis or storm; F21 Schizotypal disorder; Z98.890 Other specified postprocedural states; Z87.891 Personal history of nicotine dependence; Z82.49 Family history of ischemic heart disease and other diseases of the circulatory system
CPT/HCPCS: 47562; 88304; A9270; J0690; J1100; J1170; J1200; J1885; J2250; J2405; J2704; J3010; J7030; J7120

== ENCOUNTER 2025-09-20 07:56 | Emergency (ER) | payer MEDICARE, SELFPAY ==
--- NOTE | 2025-09-20 08:19 | ED_ITS ---
HPI - Abdominal Pain General Chief Complaint: Abdominal Pain Stated Complaint: my hernia popped out Time Seen by Provider: 09/20/25 08:00 History of Present Illness HPI narrative: This morning patient noticed that her belly button hernia had popped out, is quite sore, she has not been able to get it back in, and she is feeling nauseous. Has never had this happen before. Related Data Home Medications ?Medication ?Instructions ?Recorded ?Confirmed ?Last Taken ?Type ergocalciferol (vitamin D2) 1,250 See Rx Instructions .Route .COMPLEX 12/06/23 04/11/25 07/04/24 History mcg (50,000 unit) capsule spironolactone 25 mg tablet 25 mg PO DAILY 12/06/23 Unknown History tizanidine 4 mg capsule 4 mg PO QHS PRN Muscle Spasm 03/12/24 04/11/25 Unknown History lactobacillus combination no.8 3 3 cell PO DAILY 07/0404/11/25 07/04/24 History billion cell capsule Allergies Allergy/AdvReac Type Severity Reaction Status Date / Time No Known Allergies Allergy Mild Verified 09/20/25 08:24 Review of Systems 2 Review of Systems: All systems reviewed & are unremarkable except as noted in HPI and below PMFSH Past Medical History Medical History Weight loss Dyspepsia Nausea and vomiting in adult HLD (hyperlipidemia) HTN (hypertension) Hyperthyroidism Schizotypal personality disorder Surgical History Surgical History History of laparoscopic cholecystectomy 07/08/2024 History of hysterectomy No pertinent past surgical history Family History Family History Father Cerebrovascular accident Hypertension Mother Hypertension Sibling Alcoholism Social History Social History Social History: 09/03/24 very confident with medical forms Smoking packs per day: 1 Smoking cigarettes per day: 20.0 Years smoked: 35 Smoking pack-years: 35.00 Smoking status: Former smoker Tobacco type: cigarettes Second hand tobacco smoke exposure: No Smoking end date: 07/28/21 Additional smoking assessment comments: Quit smoking 1 year ago Alcohol intake: never Substance use: never Do You Feel Safe in your Home?: Yes Lack of Transportation: No Lack of Food: Never True Current Housing: I Have Housing Concerned About Future Housing: No Difficulty Paying Gas/Electric Bills: No Difficulty Paying for Meds: No Currently Unemployed: No Education: High School Diploma/GED Difficulty w/ Childcare or Family Care: No Living arrangements: with family Additional living arrangements comments: [facility] Gender identity (if verbalized by the patient): Female Spiritual care concerns: No Agree to blood products: Yes Exam 2 Narrative: EXAMINATION OF ORGAN SYSTEMS/BODY AREAS: Constitutional: Vital signs per nursing GENERAL: Appears uncomfortable in pain HEAD: Normal with no signs of head trauma. EYES: EOMI, conjunctiva normal ENT: Hearing grossly intact LUNGS: Nonlabored breathing. HEART: [Regular rate and rhythm] ABD: [Soft], slightly tender to palpation specially around the upper abdomen, and umbilicus where she has an umbilical hernia. EXT: Normal range of motion SKIN: [No rashes or lesions.] NEURO: [Alert and oriented x 3. No gross focal sensory or strength deficits.] PSYCH: Normal affect Course Vital Signs Vital signs: Vital Signs Temperature 97.7 F 09/20/25 08:22 Pulse Rate 59 L 09/20/25 08:22 Respiratory Rate 17 09/20/25 08:22 Blood Pressure 172/100 H 09/20/25 08:22 Pulse Oximetry 99 09/20/25 08:22 Oxygen Delivery Room Air 09/20/25 08:22 Temperature 97.7 F 09/20/25 08:22 Pulse Rate 67 09/20/25 11:38 Respiratory Rate 20 09/20/25 11:38 Blood Pressure 138/70 09/20/25 11:38 Pulse Oximetry 97 09/20/25 11:38 Oxygen Delivery Room Air 09/20/25 08:22 MDM - Abdominal Pain MDM Narrative Medical decision making narrative: Patient presents with hernia that will not go back in with abdominal pain, nausea, on my exam she does appear quite uncomfortable, abdomen is soft but she does have some tenderness to gentle palpation, does have an umbilical hernia I am unable to gently reduce as patient cannot tolerate the pain. I did order pain medications and will try again, otherwise plan on getting a CT with surgery consult if I am unable to reduce. On re-evaluation, I am able to easily reduce the hernia. Has not come back out. Abdominal binder ordered. Patient is now very comfortable, symptoms completely resolved. She does feel comfortable with outpatient management and follow-up to general surgery, with strict return precautions. Lab Data 09/20/25 08:42 09/20/25 08:42 Labs: Lab Results 09/20/25 Range/Units 08:42 WBC 11.4 H (4.5-10.0) K/mm3 RBC 4.00 L (4.2-5.4) M/mm3 Hgb 12.5 (12.0-15.0) g/dL Hct 38.6 (37.0-47.0) % MCV 96.5 (80-100) fl MCH 31.3 (26-34) pg MCHC 32.4 (32-36) g/dl RDW 13.5 (11.5-14.5) % Plt Count 285 (150-375) k/mm3 MPV 9.1 (7.4-10.4) fl Immature Gran % (Auto) 0.4 (0-0.5) % Neut % (Auto) 72.8 (45.5-73.1) % Lymph % (Auto) 18.1 L (18.3-44.2) % [place] % (Auto) 7.1 (2.6-8.5) % Eos % (Auto) 1.1 (0-4.4) % Baso % (Auto) 0.5 (0.2-1.2) % Lymph # (Auto) 2.06 (0.9-3.2) K/mm3 [place] # (Auto) 0.8 H (0.1-0.6) K/mm3 Eos # (Auto) 0.1 (0-0.3) K/mm3 Baso # (Auto) 0.1 (0.0-0.1) K/mm3 Abs Immat Gran (auto) 0.04 H (0.00-0.031) K/mm3 Absolute Neuts (auto) 8.3 H (1.3-6.7) K/mm3 Absolute Nucleated RBC 0.000 (0.0-0.012) K/mm3 Nucleated RBC % 0.0 (0.0-0.2) % Sodium 136 L (137-145) mmol/L Potassium 4.1 (3.4-5.0) mmol/L Chloride 106 (98-107) mmol/L Carbon Dioxide 23 (22-30) mmol/L Anion Gap 7 (4-12) mmol/L BUN 7 (7-17) mg/dL Creatinine 0.61 L (0.7-1.0) mg/dL Estim Creat Clear Calc 62 ml/min Estimated GFR > 60 (59 - ) Glucose 92 (65-110) mg/dL Lactic Acid 0.9 (0.7-2.0) mmol/L Calcium 9.7 (8.4-10.2) mg/dL Total Bilirubin 1.0 (0.2-1.3) mg/dL AST 25 (14-36) U/L ALT 17 (6-35) U/L Alkaline Phosphatase 61 (38-126) U/L Total Protein 7.0 (6.3-8.2) g/dL Albumin 4.2 (3.5-5.1) g/dL Discharge Plan Discharge Clinical Impression: Hernia, umbilical Patient Disposition: Home Condition: Stable Instructions: Umbilical Hernia (ED) Additional Instructions: Please follow-up with the general surgeon. If the hernia comes back out again, try relaxing, heat pack, lying flat to see if it will go back in, if it stays out and you start having severe pain, nausea or anything else concerning, please return to the ER immediately. Patient Language: Croatian Prescriptions: New ondansetron 4 mg tablet,disintegrating 4 mg PO Q8H PRN (Reason: nausea and vomiting) Qty: 10 0RF ondansetron 4 mg tablet,disintegrating 4 mg PO Q8H PRN (Reason: nausea and vomiting) Qty: 10 0RF No Action ondansetron 4 mg tablet,disintegrating 4 mg PO Q8H Qty: 30 6RF tizanidine 4 mg capsule 4 mg PO QHS PRN (Reason: Muscle Spasm) Xifaxan 550 mg tablet 550 mg PO TID 14 Days Qty: 42 1RF cholestyramine (with sugar) 4 gram powder in packet 4 g PO DAILY Qty: 30 2RF Rx Instructions: administer w/meal; avoid other meds within 1hr before or 4-6hr after dose ergocalciferol (vitamin D2) 1,250 mcg (50,000 unit) capsule See Rx Instructions .ROUTE .COMPLEX Rx Instructions: Patient takes 1.25 mg capsule every monday and monday. spironolactone 25 mg tablet 25 mg PO DAILY Patient Comments: QAM lactobacillus combination no.8 3 billion cell Capsule 3 cell PO DAILY cholecalciferol (vitamin D3) 1,250 mcg (50,000 unit) capsule 1,250 mcg PO WEEKLY Qty: 30 0RF olmesartan 40 mg tablet 40 mg PO DAILY Qty: 90 1RF Patient Comments: QAM rosuvastatin 20 mg tablet 20 mg PO DAILY 90 Days Qty: 90 1RF trazodone 100 mg tablet 100 - 200 mg PO PRN PRN (Reason: Insomnia) Qty: 90 1RF carvedilol 6.25 mg tablet 6.25 mg PO Q12H Qty: 180 1RF Rx Instructions: must administer with a meal/food omeprazole 20 mg capsule,delayed release(DR/EC) 20 mg PO DAILY Qty: 90 0RF quetiapine 200 mg tablet 100 mg PO HS Qty: 90 0RF Follow-up/Referrals: Ila Subramanian APRN [Primary Care Provider, Family Practice] Vinicius Ham DO [Physician, General Surgery] - 2 Days
[2025-09-20 08:22] VITALS: BP 172/100; PULSE 59; RESP 17; TEMP 36.5; O2SAT 99
[2025-09-20 08:48] LABS: Hematocrit 38.6 % (37.0-47.0); Hemoglobin 12.5 g/dL (12.0-15.0); Immature Granulocyte Percent A 0.4 % (0-0.5); Lymphocytes Absolute Auto 2.06 K/mm3 (0.9-3.2); Mean Corpuscular HGB Conc 32.4 g/dl (32-36); Mean Corpuscular Hemoglobin 31.3 pg (26-34); Mean Corpuscular Volume 96.5 fl (80-100); Nucleated Red Blood Cells Absolute Auto 0.000 K/mm3 (0.0-0.012); Nucleated Red Blood Cells Perc 0.0 % (0.0-0.2); Platelet Count Result 285 k/mm3 (150-375); Red Blood Count 4.00 M/mm3 (4.2-5.4); White Blood Count 11.4 K/mm3 (4.5-10.0)
[2025-09-20] MEDS: ONDANSETRON INJ 4 MG/2 ML VIAL IV PUSH (09:05)
[2025-09-20 09:07] LABS: Alanine Aminotransferase 17 U/L (6-35); Albumin Level 4.2 g/dL (3.5-5.1); Alkaline Phosphatase 61 U/L (38-126); Anion Gap 7 mmol/L (4-12); Aspartate Amino Transferase 25 U/L (14-36); Bilirubin,Total 1.0 mg/dL (0.2-1.3); Blood Urea Nitrogen 7 mg/dL (7-17); Calcium 9.7 mg/dL (8.4-10.2); Carbon Dioxide 23 mmol/L (22-30); Chloride 106 mmol/L (98-107); Estimated CRCL calculation 62 ml/min; Estimated Glomerular Filt Rate > 60; Glucose 92 mg/dL (65-110); Potassium 4.1 mmol/L (3.4-5.0); Sodium 136 mmol/L (137-145); Total Protein 7.0 g/dL (6.3-8.2)
[2025-09-20] MEDS: diazePAM INJ (*CRX) 10 MG/2 ML SYRINGE 5 MG IV PUSH (09:08)
[2025-09-20] MEDS: HYDROmorphone HCL INJ (*CRX) 1 MG/ML SYR 0.5 MG IV PUSH (09:13)
[2025-09-20 11:38] VITALS: BP 138/70; PULSE 67; RESP 20; O2SAT 97
== END 2025-09-20 11:40 | disposition home or self-care (01) ==
PROVIDERS: Emergency Provider Emergency Medicine; PCP Nurse Practitioner Family
DX: K42.9 Umbilical hernia without obstruction or gangrene (principal); E78.5 Hyperlipidemia, unspecified; I10 Essential (primary) hypertension; F21 Schizotypal disorder; F60.1 Schizoid personality disorder; Z87.891 Personal history of nicotine dependence
CPT/HCPCS: 36415; 80053; 83605; 85025; 96374; 96375; 99284; J1171; J2405; J3360

== ENCOUNTER 2025-10-16 09:18 | Outpatient (CLI) | payer MEDICARE, MEDICAID, SELFPAY ==
--- NOTE | 2025-10-16 09:25 | ECG_ITS ---
Test Date: 2025-10-16 09:38:29 Measurements Intervals [place] Rate: 55 P: 186 ME: 109 QRS: 48 QRSD: 94 T: 63 QT: 424 QTc: 408 Interpretive Statements SINUS BRADYCARDIA NONSPECIFIC ST & T-WAVE ABNORMALITY Electronically Signed On 10-16-2025 10:18:22 END FINDER TWISTING DEPARTMENT by Rogers Gonsales D.O
--- OUTSIDE RECORDS SUMMARY | 2025-10-16 10:40 | XMS_ITS | Clinical Summary ---
Author Organization [facility] Address [address] [place] [address] Care Team Providers Care Weed Eradicator Name Role Phone Ila Subramanian Primary Care Provider [phone] Allergies No known active allergies Medications amLODIPine 10 MG tablet Take 1 tablet (10 mg total) by mouth daily. Active traZODone 100 MG tablet Take 2 tablets (200 mg total) by mouth nightly at bedtime. Active rosuvastatin 20 MG tablet rosuvastatin 20 mg tablet TAKE 1 TABLET BY MOUTH ONCE DAILY Active Olmesartan Medoxomil-HCTZ 40-25 MG Tab olmesartan 40 mg-hydrochloroth iazide 25 mg tablet TAKE 1 TABLET BY MOUTH ONCE DAILY Active albuterol sulfate HFA 108 (90 Base) MCG/ACT inhaler albuterol sulfate HFA 90 mcg/actuation aerosol inhaler INHALE 2 PUFFS BY MOUTH EVERY 6 HOURS NEEDED Active vitamin D3 (CHOLECALCIFERO L) 25 mcg tablet Take 1 tablet (25 mcg total) by mouth daily. Active carvedilol (COREG) 3.125 MG tablet Take 1 tablet (3.125 mg total) by mouth 2 (two) times daily. Active pantoprazole EC (PROTONIX) 40 MG tablet Take 1 tablet (40 mg total) by mouth 2 (two) times a day. Active QUEtiapine (SEROQUEL) 100 MG tablet Take 1 tablet (100 mg total) by mouth nightly at bedtime. Active Active Problems Problem Noted Date Diagnosed Date Hyponatremia 12/14/2023 Palpitations 06/13/2023 12/15/2023 Pericardial effusion 12/06/2022 12/15/2023 Microscopic hematuria 07/22/2021 12/15/2023 Adrenal adenoma 06/14/2021 12/15/2023 Multiple renal cysts 06/14/2021 12/15/2023 Edema 03/23/2021 12/15/2023 Essential hypertension 03/23/2021 Family history of stroke 03/23/2021 024 Hyperlipidemia 03/23/2021 12/15/2023 Tobacco dependence syndrome 03/23/202111/27 Dermatitis 01/09/2015 12/15/2023 Tendonitis 12/31/2014 12/15/2023 Resolved Problems Problem Noted Date Diagnosed Date Resolved Date Encounter for preventive health examination 12/30/2014 12/15/2023 12/18/2023 Social History Tobacco Use Types Packs/Day Years Used Date Smoking Tobacco: Former Cigarettes Q uit: 08/05/2022 Smokeless Tobacco: Never Tobacco Cessation:Counseling Given: Not Answered Alcohol Use Standard Drinks/Week Comments Not Asked 6.7 (1 standard drink = 0.6 oz p ure alcohol) WEEKLY [employer] Answer Date Recorded In the past 12 months has e [employer], gas, oil, or water [employer] threatened to shut off services in your home? No 12/14/2023 Humiliation, Afraid, Rape, and Kick questionnair e Answer Date Recorded Within the last year, have y ou been afraid of your partner or ex-partner? No 12/14/2023 Within the last year, have y ou been humiliated or emotionally abused in other ways by your partner or ex-partner? No Within the last year, have y ou been kicked, hit, slapped, or otherwise physically hurt by your partner or ex-partner? No 12/14/2023 Within the last year, have y ou been raped or forced to have any kind of sexual activity by your partner or ex-partner? No 12/14/2023 Overall Financial Resource Strain (CARDIA) Answe r Date Recorded How hard is it for you to pa y for the very basics like food, housing, medical care, and heating? Not very hard 12/14/2023 Hunger Vital Sign Answer Date Recorded Within the past 12 months, y ou worried that your food would run out before you got the money to buy more. Never true 12/14/19 24 Within the past 12 months, t he food you bought just didn't last and you didn't have money to get more. Never true 12/14/2023 PRAPARE - Transportation Answer Date Re corded In the past 12 months, has l ack of transportation kept you from medical appointments or from getting medications? No 11/27 In the past 12 months, has l ack of transportation kept you from meetings, work, or from getting things needed for daily living? No 12/14/2023 Housing Stability Vital Sign Answer Paco e Recorded In the last 12 months, was t here a time when you were not able to pay the mortgage or rent on time? No 12/14/2023 In the last 12 months, how many places have you lived? 1 12/14/2023 In the last 12 months, was t here a time when you did not have a steady place to sleep or slept in a fdc (including now)? No 12/14/2023 Comments No Sex and Gender Information Value Date Recorded Sex Assigned at Not on file Legal Sex Female 6:59 PM CDT Gender Identity Not on file Sexual Orientation Not on file Last Filed Vital Signs Vital Sign Reading Time Taken Comments Blood Pressure 107/76 12/26/2023 3:00 PM PERSONAL COMPUTER NETWORK ENGINEER Pulse 82 12/26/2023 3:00 PM PERSONAL COMPUTER NETWORK ENGINEER Temperature 36.2 C (97.2 F) 12/26/2023 1:08 PM PERSONAL COMPUTER NETWORK ENGINEER Respiratory Rate 17 12/26/2023 3:00 PM PERSONAL COMPUTER NETWORK ENGINEER Oxygen Saturation 96% 12/26/2023 3:00 PM PERSONAL COMPUTER NETWORK ENGINEER Inhaled Oxygen Concentration - - Weight 84.4 kg (186 lb) 12/26/2023 1:08 PM PERSONAL COMPUTER NETWORK ENGINEER Height 152.4 cm (5') 12/26/2023 1:08 PM PERSONAL COMPUTER NETWORK ENGINEER Body Mass Index 36.33 12/26/2023 1:08 PM PERSONAL COMPUTER NETWORK ENGINEER Plan of Treatment Health Maintenance Due Date Last Done Comments Hepatitis C 1975 DTaP, Tdap and Td Vaccines ( 1 - Tdap) 1976 Mammogram Screening 1997 Pneumococcal Vaccine: 50+ Years (1 of 1 - PCV) 2007 Zoster Vaccines (1 of 2) 2007 Annual Medicare Wellness Visit 2022 Dexa Scan (General) 2022 COVID-19 Vaccine (2 - 2024-2 6 season) 2025 05/11/2021 Influenza Adult (#1) 2025 Colorectal Cancer Screening Colonoscopy (10 Years) 08/12/2031 08/12/2021, 08/12/2021 RSV Immunization or 60+ Years (1 - 1-dose 75+ series) 2032 Hepatitis A Vaccines Aged Out No long er eligible based on patient's age to complete this topic Meningococcal B Vaccine Aged Out No l onger eligible based on patient's age to complete this topic Meningococcal Vaccine Aged Out No mau armand eligible based on patient's age to complete this topic RSV Immunizations Under 20 Months Aged Out No longer eligible b ased on patient's age to complete this topic Procedures Procedure Name Priority Date/Time Associated Diagnosis Comments COLONOSCOPY Routine 08/12/2021 12:50 PM CDT from Last 3 Months or Most Recently Relevant to Health Maintenance Results * Colonoscopy (08/12/2021 12:50 PM CDT) Narrative Jean Carreno MD - 08/12/2021 12:50 PM CDT Jean Carreno MD 08/12/2021 1:30 PM JEAN CARRENO MD, FACG, FACP COLONOSCOPY 08/12/2021 INDICATION: Screening for colon cancer. POST-OP: Two polyps removed. SEDATION: Per Anesthesia PREP: Good. Collection Clerk: Dr. Dejon Otero With the patient in the left lateral decubitus position, the Olympus [id number] colonoscope was introduced into the rectum and advanced easily to the cecum identified by Ileocecal valve, appendiceal orifice and cecal strap. Careful inspection of the mucosa was made upon insertion and withdrawal of the endoscope. FINDINGS: Cecum, Ascending, Transverse, Descending colon and Rectum including retroflexion normal. Sigmoid colon: 1.0 cm sessile polyp and 1.0 cm pedunculated polyp removed with snare polypectomy without bleed. No masses, AVMs, colitis or diverticulosis seen. No complications, blood loss or implants. ASSESSMENT AND PLAN: Two polyps removed: if adenomatous repeat colonoscopy in three years, otherwise screening colonoscopy in 10 years. Thank you for allowing me to care for your patient. She will follow-up with Dr. Lauren as needed. Jean Carreno M.D. Cc: Dr. Isabelle Lauren Jean Carreno MD GI PROCEDURE ORDERABLES Fin al Result from Last 3 Months or Most Recently Relevant to Health Maintenance Insurance MEDICARE MEDICAID Advance Directives * Full Code (Latest Code Status on File) Date Activated Date Inactivated Comments 12/14/2023 3:46 PM 12/16/2023 12:51 PM Care Teams Weed Eradicator Relationship Specialty Start Date End Date Ila Subramanian FNP [facility] [place] [address] PCP - General Nurse Practitioner Family 03/21/25
--- OUTSIDE RECORDS SUMMARY | 2025-10-16 10:40 | XMS_ITS | Clinical Summary ---
Author Organization [facility] Address [address] [address] Phone Care Team Providers Care Pharmacy Technician Instructor Name Role Phone Jt Lauren MD Primary Care Provider [phone] Allergies No known active allergies Medications olmesartan-hyd roCHLOROthiazi de (BENICAR HCT) 40-25 MG per tablet Take 1 tablet by mouth 1 (one) time each day Active amLODIPine (NORVASC) 10 MG tablet Take 10 mg by mouth 1 (one) time each day 1 Active QUEtiapine (SEROquel) 100 MG tablet Take 100 mg by mouth every night 1 Active traZODone (DESYREL) 100 MG tablet Take 200 mg by mouth at night if needed Active ergocalciferol (VITAMIN D2) 1.25 MG (92059 UT) capsule Take 50,000 Units by mouth 2 (two) times a week Active carvedilol (COREG) 6.25 MG tablet Take 6.25 mg by mouth in the morning and 6.25 mg in the evening. Take with meals. Active rosuvastatin (CRESTOR) 20 MG tablet Take 20 mg by mouth 1 (one) time each day Active omeprazole OTC (PriLOSEC OTC) 20 MG EC tablet Take 20 mg by mouth 1 (one) time each day Active Allopurinol (ZYLOPRIM PO) Take by mouth 1 (one) time each day Active tiZANidine (ZANAFLEX) 4 MG capsule Take 4 mg by mouth at bed time Active spironolactone (ALDACTONE) 25 MG tablet Take 1 tablet by mouth once daily 30 tablet 5 Active spironolactone (ALDACTONE) 25 MG tablet Take 1 tablet by mouth once daily 30 tablet 5 10/13/20 25 Discontinued Active Problems Problem Noted Date Diagnosed Date Hyponatremia 05/10/2024 Essential hypertension 06/14/2021 Adrenal adenoma 06/14/2021 Resolved Problems Problem Noted Date Diagnosed Date Resolved Date Chronic kidney disease stage 2 05/10/2024 11/12/2024 Microscopic hematuria 07/22/20212023 Multiple renal cysts 06/14/2021 024 Encounters Date Type Department Care Team Description 10/13/2025 Refill [facility] [address] [place] [address] Gloria Hawkins NP 09/14/2025 Refill [facility] [address] [place], [place] [id number] Gloria Hawkins NP from Last 3 Months Family History Medical History Relation Comments Hypertension Father Hypertension Mother Relation Status Comments Father Mother Social History Tobacco Use Types Packs/Day Years Used Date Smoking Tobacco: Every Day Cigarettes 1 15 Smokeless Tobacco: Never Alcohol Use Standard Drinks/Week Comments Yes 0 (1 standard drink = 0.6 oz pur e alcohol) Socially Comments Unknown Sex and Gender Information Value Date Recorded Sex Assigned at Not on file Legal Sex Female 1:40 PM MDT Gender Identity Not on file Sexual Orientation Not on file Last Filed Vital Signs Vital Sign Reading Time Taken Comments Blood Pressure 128/94 11/12/2024 11:43 AM STUDIO CONTROL OPERATOR Pulse 73 11/12/2024 11:43 AM STUDIO CONTROL OPERATOR Temperature 36.4 C (97.6 F) 06/17/2021 1:48 PM CDT Respiratory Rate - - Oxygen Saturation - - Inhaled Oxygen Concentration - - Weight 73.5 kg (162 lb) 11/12/2024 11:43 AM STUDIO CONTROL OPERATOR Height 152.4 cm (5') 11/12/2024 11:43 AM STUDIO CONTROL OPERATOR Body Mass Index 31.64 11/12/2024 11:43 AM STUDIO CONTROL OPERATOR Plan of Treatment Upcoming Encounters Date Type Department Care Team (Late st Contact Info) Description 11/11/2025 12:00 PM STUDIO CONTROL OPERATOR Office Visit [facility] [address], [address] [place], [place] [id number] Jan Mehta MD [address] [id number] Health Maintenance Due Date Last Done Comments Pneumococcal PPSV23/PCV13 65 + Years / High and Highest Risk (1 of 5 - PCV) 1976 Influenza Vaccine (#1) 2025 Insurance [employer] PM INTERFACED INS[place] [id number] Care Teams Pharmacy Technician Instructor Relationship Specialty Start Date End Date Jt Lauren MD PCP - General 05/17/21
== END 2025-10-16 09:19 | disposition home or self-care (01) ==
LOC: ANHSURGERY 09:23
PROVIDERS: PCP Nurse Practitioner Family; Visit Provider Surgery
DX: R00.1 Bradycardia, unspecified (principal); R94.31 Abnormal electrocardiogram [ECG] [EKG]; I10 Essential (primary) hypertension; E78.5 Hyperlipidemia, unspecified
CPT/HCPCS: 93005

== ENCOUNTER 2025-10-28 02:50 | Day surgery (SDC) | payer MEDICARE, SELFPAY ==
[2025-10-15 12:25] VITALS: BMI 26.9
--- NOTE | 2025-10-15 12:33 | PC.NURSE ---
[facility] has started construction of its new state of the art ER which will open Spring 2026. With this, we anticipate parking may be a challenge for some our surgical patients and families. Parking spaces are limited but are available for all Surgical, obstetrics, and ER patients sharing this lot. If you arrive and find you are having a hard time finding a parking space, please note that we understand the challenges, please drive around the hospital and park near Hospital Entrance 1. When you enter this entrance, you can ask a volunteer to direct or take you back to the surgical waiting area to check in. We appreciate everyone?s understanding of these expected challenges while we build for your future. Report to the Outpatient Waiting Room, entrance under the green pavilion located off [address], at time ___0630am____ on date _10/28/25 . Planned Procedure Time: _0830am .? Time changes happen often and if your time is changed the preop area will call you the afternoon before. - You and your visitor will be asked to self-screen and do not enter if you have any COVID symptoms. Please call surgeon if you need to reschedule. - A mask is optional within the hospital at this time. Patients may have clear liquids (water, carbonated beverages, clear teas, apple juice) until 3 hours prior to surgery with a maximum of 20 ounces. - No food from midnight until time of surgery and no smoking, or chewing tobacco (or any form of nicotine). No chewing gum, candy or mints. ( 05:30am) Take only the following medications with a SIP of water on the morning of surgery: Coreg, Tizanidine as needed, Zofran if needed DO NOT STOP ANY OF YOUR OTHER PRESCRIPTION MEDICATIONS PRIOR TO SURGERY EXCEPT THE FOLLOWING Hold all vitamins and supplements for 3 days per anesthesiologist. Medications to discontinue per physician NONE Date to take last dose NONE Please no make-up, nail american, hairspray, perfume, deodorant, or body powder the day of surgery.? No jewelry (including any body piercings) or valuables the day of surgery, leave them at home.? Please take a shower or bath the night before, or the morning of, surgery with an antibacterial soap GOLD DIAL SOAP ? Wear comfortable, loose fitting clothing.? - Jewelry must be removed prior to entering the operating room.? Rings and piercings that are not removed may be cut off. - The hospital will not accept responsibility for valuables.? - Please leave all valuables, including medications, at home the day of surgery. If you are going home after surgery, a licensed solid waste truck driver must drive you home.? - NO public transportation without another adult if you receive anesthesia. - We recommend that an adult stay with you for 24 hours following discharge. - We also recommend that you do not drive, make important decision, drink alcoholic beverages, or take any drugs that were not prescribed by your health care provider for at least 24 hours after your discharge time. Follow any additional instructions given to you from your surgeon. Telephone instructions given to ___Patient and asked if any additional questions and then verbalized understanding. Patient advised to call surgeon office or pre surgery nurse liaison [phone] if any additional questions.
[2025-10-28] VITALS (10 sets, daily range): BP systolic 123–156; BP diastolic 65–102; PULSE 59–66; RESP 10–18; TEMP 36.5–36.8; O2SAT 92–98
--- OUTSIDE RECORDS SUMMARY | 2025-10-28 02:52 | XMS_ITS | Clinical Summary ---
Author Organization [facility] Address [address] [place] [address] Care Team Providers Care Assembly Leader Name Role Phone Jt Lauren MD Primary Care Provider [phone] Source Comments [facility]non-owned Affiliates and Associated Physician Practices is amultiple site organization consisting of ambulatory clinics and hospital sitesin [place], [place], [place] and [place]. This disclosure is being madepursuant to the Care Everywhere program and may not contain all information available regarding this patient. Last updated 18.[facility] Allergies No known active allergies Medications * Be aware that medications may not be up to date on this document. Alwaysverify current medications with the patient. rosuvastatin (CRESTOR) 20 MG tablet Take 1 (one) tablet by mouth once daily 1 Active olmesartan-hydroC HLOROthiazide (BENICAR HCT) 40-25 MG tablet Take 1 (one) tablet by mouth once daily 1 Active vitamin D, ergocalciferol, (DRISDOL) 1.25 MG (39006 UT) capsule 1 Active benazepril (LOTENSIN) 40 MG tablet Take 1 (one) tablet by mouth once daily 1 Active amLODIPine (NORVASC) 10 MG tablet Take 1 (one) tablet by mouth once daily 1 Active carvedilol (Coreg) 3.125 MG tablet Take 1 (one) tablet by mouth 2 times daily with morning and evening meal 2 Active buPROPion SR 12hr (Wellbutrin-SR) 150 MG tablet 2 Active oxyBUTYnin CR 24hr (Ditropan-XL) 10 MG tabletIndications :Urinary urgency,Urinary frequency,Urgency incontinence Take 1 (one) tablet by mouth once daily 90 tablet 3 3 Active QUEtiapine (SEROquel) 100 MG tablet 3 Active traZODone (Desyrel) 100 MG tablet Take 2 (two) tablets by mouth at bedtime Active Active Problems Problem Noted Date Diagnosed Date Palpitations 06/13/2023 08/17/2023 Pericardial effusion 12/06/2022 08/17/2023 Microscopic hematuria 07/22/2021 08/17/2023 Adrenal adenoma 06/14/2021 08/17/2023 Multiple renal cysts 06/14/2021 08/17/2023 Edema 03/23/2021 08/17/2023 Essential hypertension 03/23/2021 Family history of stroke 03/23/2021 023 Hyperlipidemia 03/23/2021 08/17/2023 Tobacco dependence syndrome 03/23/202107/29 Social History Tobacco Use Types Packs/Day Years Used Date Smoking Tobacco: Former Cigarettes 0 Q uit: 08/08/2022 Smokeless Tobacco: Never Tobacco Cessation:Counseling Given: Not Answered Alcohol Use Standard Drinks/Week Comments Not Currently 0 (1 standard drink = 0.6 oz pur e alcohol) Comments No Sex and Gender Information Value Date Recorded Sex Assigned at Not on file Legal Sex Female 2:52 PM CDT Gender Identity Not on file Sexual Orientation Not on file Last Filed Vital Signs Vital Sign Reading Time Taken Comments Blood Pressure 118/82 09/04/2023 10:53 AM CDT Pulse 67 09/04/2023 10:53 AM CDT Temperature 36.8 C (98.2 F) 09/04/2023 10:53 AM CDT Respiratory Rate - - Oxygen Saturation 94% 09/04/2023 10:53 AM CDT Inhaled Oxygen Concentration - - Weight 81.2 kg (179 lb) 08/18/2022 10:48 AM CDT Height 152.4 cm (5') 08/18/2022 10:48 AM CDT Body Mass Index 34.96 08/18/2022 10:48 AM CDT Plan of Treatment Health Maintenance Due Date Last Done Comments BONE DENSITY TESTING 1957 COLOGUARD (AGES 45-75) - COL ON CA SCREENING 1957 CT COLONOGRAPHY - COLON CA SCREENING 1957 FIT - COLON CA SCREENING 1957 FLEX SIG - COLON CA SCREENING 1957 MAMMOGRAM 1955 MEDICARE AWV 12 MONTHS 1957 HEPATITIS C SCREENING 07/08/1975 DTAP/TDAP/TD VACCINES (1 - Tdap) 1976 PNEUMOCOCCAL VACCINE 50+ (1 of 1 - PCV) 2007 ZOSTER VACCINE (1 of 2) 2007 DEPRESSION SCREENING 11/27/2024 COVID-19 VACCINE (1 - 2024-2 6 season) 2025 INFLUENZA VACCINE (#1) 2025 COLON MONITORING 08/12/2031 08/12/2021 COLONOSCOPY - COLON CA SCREENING 08/12/2031 08/12/20 21 Colorectal Cancer Screening 08/12/2031 Respiratory Syncytial Virus (RSV) Vaccine Pt: or over 60 yrs (1 - 1-dose 75+ series) 2032 HEPATITIS B VACCINE Aged Out No longe r eligible based on patient's age to complete this topic HIB VACCINE Aged Out No longer eligi ble based on patient's age to complete this topic HPV VACCINE Aged Out No longer eligi ble based on patient's age to complete this topic MENINGOCOCCAL (Group B) VACC INE SHARED DECISION-MAKING Aged Out No longer eligibl e based on patient's age to complete this topic MENINGOCOCCAL GROUPS A/C/Y/W VACCINE Aged Out No longer eligible b ased on patient's age to complete this topic Insurance MEDICAID - OUT OF STATE MEDICARE MEDICARE MEDICAID - [place] SELF PAY NO INSURANCE Member Subscriber Plan / Payer (Ef fective for All Dates) Name:Melissa Larsenena Member ID:Not on file Relation to Subscriber:Not on file Name:EDWARD LARSEN Subscriber ID:Not on file (Home) Address: [address] [place] [address] Payer ID:Not on file Group ID:Not on file Type:Self Pay Address: [place], [place] MEDICARE SELF PAY NO INSURANCE Member Subscriber Plan / Payer (Ef fective for All Dates) Name:Edward Larsen Member ID:Not on file Relation to Subscriber:Not on file Name:CHAVAEDWARD Orozco Subscriber ID:Not on file Address: [address] [place] [address] Payer ID:Not on file Group ID:Not on file Type:Self Pay Address: [place], [place] Care Teams Assembly Leader Relationship Specialty Start Date End Date Jt Lauren MD [address] [place] [id number] PCP - General 03/24/21
--- OUTSIDE RECORDS SUMMARY | 2025-10-28 02:52 | XMS_ITS | Clinical Summary ---
Author Organization [facility] Address [address] [place] [address] Care Team Providers Care White Goods Appliance Tech Name Role Phone Lamberto Bartlett MD Primary Care Provider [phone] Allergies No known active allergies Medications amLODIPine (NORVASC) 10 mg tablet Take 1 tablet (10 mg total) by mouth daily 11/27/1969 Active carvediloL (COREG) 3.125 mg tablet Take 1 tablet (3.125 mg total) by mouth Active ergocalciferol (VITAMIN D) 50,000 unit capsule 11/27/1969 Active olmesartan-hydr ochlorothiazide (BENICAR HCT) 40-25 mg per tablet Take 1 tablet by mouth daily Active rosuvastatin (CRESTOR) 20 mg tablet Take 1 tablet (20 mg total) by mouth daily Active traZODone (DESYREL) 100 mg tablet TAKE 1 TO 2 TABLETS BY MOUTH EVERY DAY AT BEDTIME NEEDED FOR SLEEP Active QUEtiapine (SEROquel) 100 mg tablet Take 1 tablet (100 mg total) by mouth nightly Active meloxicam (MOBIC) 15 mg tablet Take 1 tablet (15 mg total) by mouth daily as needed for pain Take 1/2 tab in morning and 1/2 tab in evening 60 tablet 10/12/2023 Active tiZANidine (ZANAFLEX) 4 mg tabletIndicatio ns:Chronic bilateral low back pain without sciatica TAKE 1 TABLET BY MOUTH NIGHTLY NEEDED FOR MUSCLE SPASM 90 tablet 08/25/2025 Active Active Problems No known active problems Encounters Date Type Department Care Team Description 10/15/2025 Documentation [facility] [address] [facility] [address], [address] [place] [address] Carolyn Mercado RN 10/13/2025 Telephone [facility] [address] [place] [address] [place] [phone] Taina Horn NP 10/13/2025 Telephone [facility] [address] [place] [address] [place] [phone] Taina Horn NP 10/12/2025 8:15 AM 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 [employer] - 10/12/2025 11:59 PM 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 Hospital Encounter [facility] MRI [address] [place] [id number] Chronic neck pain; Foraminal stenosis of cervical region, mild left-sided C5-C6; Arthropathy of cervical facet joint, multilevel; DDD (degenerative disc disease), cervical, minimal C5-C7; Anterolisthesis of cervical spine, mild C5 on C6 Discharge Disposition: Discharge to home or self care 09/25/2025 8:00 AM CDT Office Visit [facility] [address] [place] [address] [place] [phone] Taina Horn NP Myofascial pain syndrome, cervical (Primary Dx); Chronic neck pain; Foraminal stenosis of cervical region, mild left-sided C5-C6; Arthropathy of cervical facet joint, multilevel; DDD (degenerative disc disease), cervical, minimal C5-C7; Anterolisthesis of cervical spine, mild C5 on C6 from Last 3 Months Surgical History Surgery Date Site/Laterality Comments SECTION HYSTERECTOMY Medical History Medical History Date Comments Chronic neck and back pain Anterolisthesis of lumbar spine Transitional vertebra, 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 Never 05/26/2025 Average Number of Drinks Not on file 025 Q3: How often do you have si x or more drinks on one occasion? 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 Not on file Not on file Not on file Last Filed Vital Signs Vital Sign Reading Time Taken Comments Blood Pressure - - Pulse - - Temperature - - Respiratory Rate - - Oxygen Saturation - - Inhaled Oxygen Concentration - - Weight 62.6 kg (138 lb 0.1 oz) 10/12/2025 8:19 A M 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 Height 152.4 cm (5') 10/12/2025 8:19 AM 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 Body Mass Index 26.95 10/12/2025 8:19 AM 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 Plan of Treatment Health Maintenance Due Date Last Done Comments Breast Cancer Screening-Mammogram 1957 Colon Cancer Screening-Colonoscopy 1957 Depression Screening 1957 Fall Risk Assessment 1957 Hepatitis C Screening 1957 Osteoporosis Screening-Bone Density Scan 1957 Hepatitis B Screening 1975 Pneumococcal vaccine 65+ (1 of 1 - PCV) 2007 Zoster Vaccine (1 of 2) 2007 Well Visit 65+ 2022 Covid-19 Vaccine (3 - 2024- season) 07/28/202508/2022, 05/11/2021 Influenza Vaccine (#1) 2025 DTaP/Tdap/Td Vaccine (2 - Td or Tdap) 03/16/2031 Procedures Procedure Name Priority Date/Time Associated Diagnosis Comments MRI CERVICAL SPINE WO CONTRAST Schedule Routine, Read Routine (OP Routine) 10/12/2025 8:55 AM 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 Chronic neck pain Foraminal stenosis of cervical region, mild left-sided C5-C6 Arthropathy of cervical facet joint, multilevel DDD (degenerative disc disease), cervical, minimal C5-C7 Anterolisthesis of cervical spine, mild C5 on C6 NE INJECTION SINGLE/POEM WRITER TRIGGER POINT 1/2 MUSCLES Routine 09/25/2025 8:00 AM CDT Myofascial pain syndrome, cervical from Last 3 Months Results * MRI Cervical Spine WO Contrast (10/12/2025 8:55 AM 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) Anatomical Region Laterality Modality Spine N/A Magnetic Resonan ce 10/13/2025 7:40 AM 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 Impressions 10/13/2025 7:40 AM 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 Prominence focal central disc osteophytic complex at C6-7 with elevation of posterior longitudinal ligament and severe spinal stenosis with moderate cord impingement. No definite intramedullary cord signal abnormality identified. Mild bilateral foraminal narrowing. Significant left-sided facet arthritis at C4-5 C5-6 with left foraminal narrowing particularly evident at C5-6. Please correlate with radiculopathy symptoms. Electronically signed by: Dedra Prabhakar M.D. Narrative 10/13/2025 7:40 AM 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 EXAM DESCRIPTION: MRI CERVICAL SPINE WITHOUT CONTRAST REASON FOR STUDY:Neck pain, chronic No surgery, no injury; neck pain that radiates down into shoulder blades; stiffness popping; symptoms since 2011, worsening over time TECHNIQUE: Sagittal and Axial imaging includes T1, T2, STIR and gradient echo sequences. FINDINGS: Cervical plain films from 08/26/2024. ALIGNMENT: Normal.] VERTEBRAE: Vertebral body height well-maintained. Normal appearing marrow. DISCS : Mild multilevel disc degeneration most evident at C6-7. See details below. HARDWARE: None in the spine. CORD: Normal in size and signal intensity. INDIVIDUAL LEVELS: C1-C2: Normal occipital cervical and C1-2 alignment. Normal atlantodens interval. No spinal stenosis at the foramen magnum. C2-C3: No significant spinal stenosis or neuroforaminal stenosis C3-C4: No significant spinal stenosis or neuroforaminal stenosis.] C4-C5: No significant spinal stenosis or neuroforaminal stenosis. Mild left facet arthritis. C5-C6: Moderate left facet arthritis. Uncovertebral spurring. Moderate left foraminal narrowing. No central canal stenosis or right foraminal narrowing. C6-C7: Large central broad-based disc osteophytic complex with elevation of posterior longitudinal ligament. There is also possibly a soft tissue component suggesting disc material in the midline. There is severe spinal stenosis with moderate midline ventral cord impingement. No confirmable intramedullary cord edema is identified. There is mild bilateral foraminal narrowing. C7-T1: No significant spinal stenosis or neuroforaminal stenosis. BASE OF BRAIN: No significant finding. UPPER THORACIC: Incompletely imaged. No significant spinal stenosis or foraminal stenosis. OTHER: No other significant finding. Procedure Note Dedra Prabhakar MD - 10/13/2025 EXAM DESCRIPTION: MRI CERVICAL SPINE WITHOUT CONTRAST REASON FOR STUDY:Neck pain, chronic No surgery, no injury; neck pain that radiates down into shoulder blades; stiffness popping; symptoms since 2011, worsening over time TECHNIQUE: Sagittal and Axial imaging includes T1, T2, STIR and gradient echo sequences. FINDINGS: Cervical plain films from 08/26/2024. ALIGNMENT: Normal.] VERTEBRAE: Vertebral body height well-maintained. Normal appearing marrow. DISCS : Mild multilevel disc degeneration most evident at C6-7. See details below. HARDWARE: None in the spine. CORD: Normal in size and signal intensity. INDIVIDUAL LEVELS: C1-C2: Normal occipital cervical and C1-2 alignment. Normal atlantodens interval. No spinal stenosis at the foramen magnum. C2-C3: No significant spinal stenosis or neuroforaminal stenosis C3-C4: No significant spinal stenosis or neuroforaminal stenosis.] C4-C5: No significant spinal stenosis or neuroforaminal stenosis. Mild left facet arthritis. C5-C6: Moderate left facet arthritis. Uncovertebral spurring. Moderate left foraminal narrowing. No central canal stenosis or right foraminal narrowing. C6-C7: Large central broad-based disc osteophytic complex with elevation of posterior longitudinal ligament. There is also possibly a soft tissue component suggesting disc material in the midline. There is severe spinal stenosis with moderate midline ventral cord impingement. No confirmable intramedullary cord edema is identified. There is mild bilateral foraminal narrowing. C7-T1: No significant spinal stenosis or neuroforaminal stenosis. BASE OF BRAIN: No significant finding. UPPER THORACIC: Incompletely imaged. No significant spinal stenosis or foraminal stenosis. OTHER: No other significant finding. IMPRESSION: Prominence focal central disc osteophytic complex at C6-7 with elevation of posterior longitudinal ligament and severe spinal stenosis with moderate cord impingement. No definite intramedullary cord signal abnormality identified. Mild bilateral foraminal narrowing. Significant left-sided facet arthritis at C4-5 C5-6 with left foraminal narrowing particularly evident at C5-6. Please correlate with radiculopathy symptoms. Electronically signed by: Dedra Prabhakar M.D. Taina Horn CALL CENTER CONSULTANT IMG MRI PROCEDURES Final Re sult * NE INJECTION SINGLE/POEM WRITER TRIGGER POINT 1/2 MUSCLES (09/25/2025 8:00 AM CDT) Narrative Taina Horn NP - 09/25/2025 8:00 AM CDT Taina Horn NP 09/25/2025 8:49 AM Trigger Point Injection Performed by: Taina Horn NP Authorized by: Taina Horn NP Consent Given by: Patient Site marked: the procedure site was marked Timeout: prior to procedure the correct patient, procedure, and site was verified Consent obtained:: Verbal Risks discussed, including, but not limited to:: Pain Alternatives discussed:: Alternative treatment Site/side marked: Yes Indications: Pain and myalgia Location: L cervical paraspinal and L upper trapezius Local anesthetic: Ethyl chloride spray Ultrasound guidance: No Needle size: 25 G Number of muscles: 1 or 2 Approach: Posterior Medications: 3 mL lidocaine 10 mg/mL (1 %); 120 mg methylPREDNISolone acetate 40 mg/mL Patient tolerance: Patient tolerated the procedure well with no immediate complications Taina Horn CALL CENTER CONSULTANT IN CLINIC/BEDSIDE ORDERABLE S Final Result from Last 3 Months Insurance IDPA MEDICARE Care Teams [employer] Appliance Tech Relationship Specialty Start Date End Date Lamberto Bartlett MD Count includes the [facility] [place], [place] [id number] PCP - General Family Medicine 08/26/24
--- OUTSIDE RECORDS SUMMARY | 2025-10-28 02:52 | XMS_ITS | Clinical Summary ---
Author Organization [facility] Address [address] [place] [address] Care Team Providers Care Cash Posting Specialist Name Role Phone Ila Subramanian Primary Care Provider [phone] Allergies No known active allergies Medications amLODIPine [...] = 0.6 oz p ure alcohol) WEEKLY Kash Utilities Answer Date Recorded In the past 12 months has e [facility], gas, oil, or water [employer] threatened to shut off services in your [...] place to sleep or slept in a residential (including now)? No 12/14/2023 Comments No Sex and Gender Information Value Date Recorded Sex Assigned at Not on file Legal Sex Female 6:59 PM CDT Gender Identity Not on file Sexual Orientation Not on file Last Filed Vital Signs Vital Sign Reading Time Taken Comments Blood Pressure 107/76 12/26/2023 3:00 PM LATEX THREAD MACHINE OPERATOR Pulse 82 12/26/2023 3:00 PM LATEX THREAD MACHINE OPERATOR Temperature 36.2 C (97.2 F) 12/26/2023 1:08 PM LATEX THREAD MACHINE OPERATOR Respiratory Rate 17 12/26/2023 3:00 PM LATEX THREAD MACHINE OPERATOR Oxygen Saturation 96% 12/26/2023 3:00 PM LATEX THREAD MACHINE OPERATOR Inhaled Oxygen Concentration - - Weight 84.4 kg (186 lb) 12/26/2023 1:08 PM LATEX THREAD MACHINE OPERATOR Height 152.4 cm (5') 12/26/2023 1:08 PM LATEX THREAD MACHINE OPERATOR Body Mass Index 36.33 12/26/2023 1:08 PM LATEX THREAD MACHINE OPERATOR Plan of Treatment Health Maintenance Due Date [...] polyps removed. SEDATION: Per Anesthesia PREP: Good. Clinical Coordinator: Dr. Dejon Otero With the patient in the left lateral decubitus position, the Olympus [id number] colonoscope was introduced into the rectum and [...] 3:46 PM 12/16/2023 12:51 PM Care Teams Cash Posting Specialist Relationship Specialty Start Date End Date Ila Subramanian FNP [facility] [place] [address] PCP - General Nurse Practitioner Family 03/21/25
[2025-10-28] MEDS: ACETAMINOPHEN 500 MG TABLET 1000 MG PO (07:10)
[2025-10-28] MEDS: LACTATED RINGERS 1,000 ML 30 ML IV CONT ×2 (07:15→09:49)
[2025-10-28] MEDS: KETOROLAC 15 MG/ML VIAL (*BKC) IV PUSH ×2 (07:16→10:07)
--- NOTE | 2025-10-28 07:22 | WPDANESEPPF ---
Anes - Initial Pre Proc Eval Procedure: Operation Date: 10/28/25 08:30 Proposed Procedures p Laparoscopic Incisional Hernia Repair with Mesh, DaVinci Assisted - Vinicius Ham DO Date/Time: 10/28/25 07:22 Surgeon: Vinicius Ham DO Pre Op Diagnosis: Incisonal Hernia 2 cm Patient Data Age: 70 Gender: F Height: 1.52 m Weight: 62.5 kg Allergies Allergy/AdvReac Type Severity Reaction Status Date / Time No Known Allergies Allergy Mild Verified 10/15/25 12:22 Home Medications ?Medication ?Instructions ?Recorded ?Confirmed ?Type spironolactone 25 mg tablet 25 mg PO DAILY 12/06/23 10/15/25 History tizanidine 4 mg capsule 4 mg PO QHS PRN Muscle Spasm 03/12/24 10/15/25 History olmesartan 40 mg tablet 40 mg PO DAILY #90 tabs 05/26/25 10/15/25 Rx rosuvastatin 20 mg tablet 20 mg PO DAILY 90 days #90 tabs 07/10/25 10/15/25 Rx carvedilol 6.25 mg tablet 6.25 mg PO Q12H #180 tabs 07/23/25 10/15/25 Rx omeprazole 20 mg capsule,delayed 20 mg PO DAILY #90 caps 08/07/25 10/15/25 Rx release quetiapine 200 mg tablet 100 mg (1/2 x 200 mg) PO HS #90 09/15/25 10/15/25 Rx tabs ondansetron 4 mg disintegrating 4 mg PO Q8H PRN nausea and 09/20/25 10/15/25 Rx tablet vomiting #10 tabs cholecalciferol (vitamin D3) 1,250 1,250 mcg PO WEEKLY 10/15/25 10/15/25 History mcg (50,000 unit) capsule trazodone 100 mg tablet 100 - 200 mg (1 - 2 x 100 mg) PO 10/16/25 Rx PRN PRN Insomnia #90 tabs Patient hx anesthesia problems: none Family hx anesthesia problems: none Results Review: All pre-operative results and documents have been reviewed as part of the pre-operative evaluation. [facility] Past Medical History Medical History Dyspepsia Nausea and vomiting in adult HLD (hyperlipidemia) HTN (hypertension) Schizotypal personality disorder Surgical History Surgical History History of laparoscopic cholecystectomy 07/08/2024 History of hysterectomy Family History Family History Father Cerebrovascular accident Hypertension Mother Hypertension Sibling Alcoholism Social History Social History Social History: 09/03/24 very confident with medical forms Smoking packs per day: 1 Smoking cigarettes per day: 20.0 Years smoked: 20 Smoking pack-years: 20.00 Smoking status: Former smoker Tobacco type: cigarettes Second hand tobacco smoke exposure: No Smoking end date: 07/28/21 Additional smoking assessment comments: Quit smoking 1 year ago Alcohol intake: never Substance use: never Lack of Transportation: No Lack of Food: Never True Current Housing: I Have Housing Concerned About Future Housing: No Difficulty Paying Gas/Electric Bills: No Difficulty Paying for Meds: No Currently Unemployed: No Education: High School Diploma/GED Difficulty w/ Childcare or Family Care: No Living arrangements: with family Additional living arrangements comments: with sp Gender identity (if verbalized by the patient): Female Spiritual care concerns: No Agree to blood products: Yes Anes - Eval Final PreProcedure Day of Procedure 10/28/25 07:22 Patient weight: overweight Heart: regular rate and rhythm Lungs: decreased breath sounds Airway: Mallampati scale class III Neurological: alert and oriented Last oral intake: >/= 8 hours ASA classification: III Emergent: no Anesthetic plan: proceed Anesthesia type and monitoring: general ETT and standard monitoring Results Review: All pre-operative results and documents have been reviewed as part of the pre-operative evaluation. Informed Consent: The patient's anesthetic plan and its attendant risks and benefits were discussed with the patient/family/POA. Questions were solicited and answers provided to the satisfaction of the patient/family/POA.
--- NOTE | 2025-10-28 07:22 | WPDHPUPDATE1 ---
History and Physical Update Update Date/Time: 10/28/25 07:22 History and Physical has been reviewed, including an updated exam of the patient. There are NO changes in the patient's condition. Risks, benefits, and alternatives have been discussed and questions answered. Patient agrees to proceed with procedure.
[2025-10-28] MEDS: ceFAZolin 2 GM in SODIUM CHLORIDE 0.9% IV 50 ML 100 ML IVPB (08:19)
[2025-10-28] MEDS: BUPIVACAINE/EPINEPHRINE 0.5% 50 ML VIAL 30 ML INFILTRATE (08:52)
[2025-10-28] MEDS: fentaNYL CITRATE INJ (*CRX) 100 MCG/2 ML VIAL 25 MCG IV PUSH ×9 (10:00→11:00)
--- NOTE | 2025-10-28 10:02 | P.OP_ITS ---
Procedure Note - Detailed Date of Procedure 10/28/25 Pre-op Diagnosis Incisional Hernia Post-op Diagnosis Same (2 cm incisional hernia) Procedure Performed Laparoscopic 2 cm incisional hernia repair with mesh, da Christiano assisted Surgeon Vinicius Ham DO Anesthesia General and Local (0.5% bupivacaine with epinephrine) Indications This is a 70-year-old woman who had presented to the emergency department on 09/20/2025 with abdominal pain a painful bulge at her umbilicus. She was noted have hernia in this location which was able to be reduced in the ED. she then followed up in the office and further discussions were made with the patient about treatment options. She was found to have an incisional hernia just above her umbilicus likely related to her prior laparoscopic surgeries. Decision was made to proceed with robotic assisted laparoscopic incisional hernia repair with mesh. Findings Robotic assisted laparoscopic incisional hernia repair with mesh was performed. The patient was found to have a 2 cm incisional hernia just superior to the umbi licus. A robotic intraperitoneal onlay mesh technique was utilized for repair. The hernia sac was excised and the preperitoneal fat was cleared around the hernia defect. The falciform ligament was also taken down several cm cephalad to allow for mesh placement. A Ventralight ST 15 cm x 10 cm mesh was then placed and secured circumferentially to the abdominal wall. No specimens were obtained for pathology. Description of Procedure Procedure as well as risks, benefits, and alternatives were discussed with the patient. Written consent was obtained and placed in chart prior to procedure. Patient was brought back to surgical suite. She was placed supine on operating table. Time-out was done to confirm patient and procedure. She was then intubated by the anesthesia department. A bump was placed under her left hip, and the bed was flexed slightly to extend the space between her costal margin and iliac crest. Her abdomen was prepped and draped in sterile fashion using chlorhexidine prep. A 5 millimeter incision was made in the left upper quadrant, and a 5 millimeter Optiview trocar was advanced through the abdominal layers under direct visualization. Once inside the abdominal cavity, carbon dioxide insufflation was used to create a pneumoperitoneum. Her abdomen was inspected. An 8 millimeter incision was made in the left lower quadrant, and an 8 millimeter robotic trocar was placed under direct visualization. Another 8 millimeter incision was made in the left lateral abdomen, and an 8 millimeter robotic trocar was placed under direct visualization. 0.5% bupivacaine with epinephrine was infiltrated around each port site. The 5 millimeter port was removed, and an 8 mm robotic trocar was placed under direct visualization. The robotic arms were brought up to the patient's bedside and secured to the ports. The camera and instruments were inserted, and I then moved over to the robotic console and took control of the camera and instruments. After careful thorough inspection of the abdominal cavity, I began my dissection at the hernia. The preperitoneal fat and hernia sac was excised using scissors with electrocautery. The falciform ligament was then also taken down for several cm cephalad using scissors with electrocautery. I then measured the hernia size. The hernia measured 2 cm. The fascia was closed using an 0- Stratafix running suture in a vertical fashion. A Ventralight ST 15 cm x 10 cm mesh was then placed within the abdominal cavity. This was oriented vertically with the mesh centered on the hernia defect. The mesh was then secured at the center and 4 corners using 3-0 Vicryl simple interrupted sutures. The entire perimeter of the mesh was then secured to the abdominal wall using 2-0 Stratafix running absorbable suture. The repair was inspected, and one final inspection was made around the abdominal cavity. The hernia sac was removed and discarded through the 8 mm trocar. The robotic instruments were then removed, and the robotic arms were disengaged from the trocars. The ports were then removed under direct visualization, the camera was removed, and the pneumoperitoneum was released. The skin of the incisions was then approximated using 4-0 Monocryl subcuticular suture. Exofin glue was then applied on top. The patient was then awakened from anesthesia, extubated, and transferred to recovery. Estimated Blood Loss 5 Complications No immediate complications Condition Stable Disposition Same day [facility] Billing Surgery - Charge Forward: Surgery Billing
[2025-10-28] MEDS: MIDAZOLAM HCL (*CRX) 2 MG/2 ML VIAL 1 MG IV PUSH (10:09)
[2025-10-28] MEDS: oxyCODONE HCL (*CRX) 5 MG TAB IR PO (11:32)
[2025-10-28] MEDS: diazePAM INJ (*CRX) 10 MG/2 ML SYRINGE 2.5 MG IV PUSH (12:02)
== END 2025-10-28 12:30 | disposition home or self-care (01) ==
PROVIDERS: PCP Nurse Practitioner Family; Visit Provider Surgery
PROC: (CPT 49591; principal; 2025-10-28 08:30)
DX: K43.2 Incisional hernia without obstruction or gangrene (principal); Z87.891 Personal history of nicotine dependence
CPT/HCPCS: 49591; S2900; 36415; 86850; 86900; 86901; J0690; A9270; C1781; J1100; J1885; J2250; J2405; J2704; J3010; J3360; J7120